=== PATIENT | male | born 1975 ===

== ENCOUNTER 2016-09-06 20:28 | Emergency (ER) | payer MEDICAID ==
[2016-09-06 20:37] VITALS: BP 119/76; PULSE 66; RESP 18; TEMP 98.6; O2SAT 99
--- NOTE | 2016-09-06 21:18 | ED PDOC ---
Lower Extremity Pain/Injury Time Seen by Provider: 09/06/16 20:42 Chief Complaint (Nursing): Lower Extremity Problem/Injury Chief Complaint (Provider): Right Thigh Pain History Per: Family (Aunt) History/Exam Limitations: no limitations Current Symptoms Are (Timing): Still Present Additional Complaint(s): Ced Drew, a 41 year old male, is brought into the ED by his aunt for right thigh pain. The aunt states that the patient has been experiencing this thigh pain for 2-3 week but today it got worse. She reports that he could barely walk. Past Medical History Reviewed: Historical Data, Nursing Documentation, Vital Signs Vital Signs: Last Vital Signs Temp 98.6 F 09/06/16 20:30 Pulse 66 09/06/16 20:30 Resp 18 09/06/16 20:30 BP 119/76 09/06/16 20:30 Pulse Ox 99 09/06/16 20:30 - Medical History PMH: Hyperthyroidism - Surgical History Surgical History: No Surg Hx - Family History Family History: States: Unknown Family Hx - Social History Current smoker - smoking cessation education provided: No Ex-Smoker (has not smoked in the last 12 months): No Alcohol: None Drugs: Denies - Home Medications Home Medications: Ambulatory Orders Medication Instructions Recorded Ibuprofen [Motrin] 600 mg PO Q8 #30 tab 03/29/14 Penicillin VK [Pen-Vee K] 500 mg PO Q6 #28 tab 03/29/14 - Allergies Allergies/Adverse Reactions: Allergies Allergy/AdvReac Type Severity Reaction Status Date / Time No Known Allergies Allergy Verified 03/29/14 14:38 Review of Systems ROS Statement: Except As Marked, All Systems Reviewed And Found Negative Musculoskeletal: Positive for: Other (Right thigh pain) Physical Exam - Reviewed Nursing Documentation Reviewed: Yes Vital Signs Reviewed: Yes - Physical Exam Appears: Positive for: Non-toxic, No Acute Distress Skin: Positive for: Normal Color, Warm, Dry Eye Exam: Positive for: Normal appearance, EOMI, PERRL Neck: Positive for: Normal Respiratory: Negative for: Accessory Muscle Use, Respiratory Distress Extremity: Positive for: Normal ROM (Pain with extension of right knee again resistance ), Tenderness (Right anterior thigh tenderness). Negative for: Pedal Edema, Calf Tenderness, Deformity, Swelling Neurologic/Psych: Positive for: Alert, Oriented - ECG O2 Sat by Pulse Oximetry: 99 (RA) Pulse Ox Interpretation: Normal Medical Decision Making Medical Decision Makin Initial Impression: 39 year old male presenting with right thigh pain Initial Plan: * Tylenol 650 mg PO * RAD right Femur * Reevaluation X-ray without acute fracture or dislocation, no FB Pt reports feeling better after tylenol (taking baby aspirin daily). Scribe Attestation Documented by Dara Mora acting as a scribe for Roro Michelle PA-C. Scribe Attestation All medical record entries made by the Scribe were at my direction and personally dictated by me. I have reviewed the chart and agree that the record accurately reflects my personal performance of the history, physical exam, medical decision making, and the department course for this patient. I have also personally directed, reviewed, and agree with the discharge instructions and disposition. Disposition - Clinical Impression Clinical Impression: Muscle strain - Patient ED Disposition Is Patient to be Admitted: No Counseled Patient/Family Regarding: Diagnosis, Need For Followup - Disposition Referrals: Diane Miles MD [Staff Provider] - Disposition: Routine/Home Disposition Time: 22:16 Condition: GOOD Additional Instructions: Ice, elevation, tylenol for pain. Instructions: Muscle Strain (ED)
--- NOTE | 2016-09-07 14:11 | RAD ---
PROCEDURE: Right femur HISTORY: Right thigh pain, anterior x 1 week COMPARISON: No prior study available comparison. TECHNIQUE: AP and lateral views of the right femur performed. FINDINGS: Current study reveals foreshortened appearance of the right femoral neck possibly due to patient positioning versus anatomic variation. Possibility of a fracture of the femoral neck cannot be excluded. Recommend followup radiographs or CT scan of the right hip if clinically indicated. Remaining osseous structures appear intact. Right femoral head is appropriately located within the right acetabulum. Soft tissues appear grossly unremarkable. IMPRESSION: There is foreshortened appearance of the right femoral neck which could be due to patient positioning versus anatomic variation. Possibility of a fracture of the femoral neck not excluded. Recommend follow-up radiographs or CT scan of the right hip if clinically indicated. Note that this report was placed in PA review folder for followup.
== END 2016-09-06 22:42 | disposition home or self-care (01) ==
LOC: H.ER 20:28
DX: M79.651 Pain in right thigh (principal)

== ENCOUNTER 2016-10-11 17:28 | Emergency (ER) | payer MEDICAID ==
[2016-10-11 17:39] VITALS: BP 99/58; PULSE 78; RESP 18; TEMP 98.1; O2SAT 98
--- NOTE | 2016-10-11 18:15 | ED PDOC ---
Lower Extremity Pain/Injury Time Seen by Provider: 10/11/16 17:50 Chief Complaint (Nursing): Lower Extremity Problem/Injury Chief Complaint (Provider): Hip Pain History Per: Patient History/Exam Limitations: no limitations Current Symptoms Are (Timing): Still Present Additional Complaint(s): Ced Drew, a 41 year old male, presents to the ED for hip pain. As per mother , the patient was seen here a month ago for the same pain and was sent home with instructions to take tylenol for pain. Fermentation Operator states that she got a letter from the hospital saying that she should bring the patient back for a repeat xray. Patient is a poor historian and does not admit to pain. He does admit to provider that he is feeling pain in hi ships bilaterally. PMD: [facility] Past Medical History Reviewed: Historical Data, Nursing Documentation, Vital Signs Vital Signs: Last Vital Signs Temp 98.1 F 10/11/16 17:35 Pulse 78 10/11/16 17:35 Resp 18 10/11/16 17:35 BP 99/58 L 10/11/16 17:35 Pulse Ox 98 10/11/16 17:35 - Medical History PMH: Hyperthyroidism - Family History Family History: States: Unknown Family Hx - Home Medications Home Medications: Ambulatory Orders Medication Instructions Recorded Ibuprofen [Motrin] 600 mg PO Q8 #30 tab 03/29/14 Penicillin VK [Pen-Vee K] 500 mg PO Q6 #28 tab 03/29/14 Bone Meal/Vitamin D2 [Bone Meal 1 tab PO DAILY #30 tab 10/11/16 214 mg-102 mg] - Allergies Allergies/Adverse Reactions: Allergies Allergy/AdvReac Type Severity Reaction Status Date / Time No Known Allergies Allergy Verified 10/11/16 17:35 Review of Systems Musculoskeletal: Positive for: Other (right hip pain) Physical Exam - Reviewed Nursing Documentation Reviewed: Yes Vital Signs Reviewed: Yes - Physical Exam Appears: Positive for: Non-toxic, No Acute Distress Head Exam: Positive for: ATRAUMATIC, NORMAL INSPECTION, NORMOCEPHALIC Skin: Positive for: Normal Color, Warm, Dry Eye Exam: Positive for: Normal appearance, EOMI, PERRL ENT: Positive for: Normal ENT Inspection Neck: Positive for: Normal, Painless ROM, Supple Cardiovascular/Chest: Positive for: Regular Rate, Rhythm, Chest Non Tender. Negative for: Tachycardia Respiratory: Positive for: Normal Breath Sounds. Negative for: Wheezing, Respiratory Distress Gastrointestinal/Abdominal: Positive for: Normal Exam, Bowel Sounds, Soft. Negative for: Tenderness Back: Positive for: Normal Inspection. Negative for: L CVA Tenderness, R CVA Tenderness Extremity: Positive for: Normal ROM (Full ROM to hips but painful with movement , pain greater in right than left.), Other (No difference in length between legs ). Negative for: Deformity, Swelling Neurologic/Psych: Positive for: Alert, Oriented, Gait - ECG O2 Sat by Pulse Oximetry: 98 (RA) Pulse Ox Interpretation: Normal Medical Decision Making Medical Decision Makin Initial Impression: 41 year old male presenting with bilateral hip pain Initial Plan: * RAD right hip * Motrin tab 600mg PO * Reevaluation CT scan shows no Fx. shows osteoarthritis. pt advised to take motrin for pain as needed, perform excersies as needed and f/ u with pmd Scribe Attestation Documented by Dara Mora acting as a scribe for Sonia Packer PA-C. Scribe Attestation All medical record entries made by the Scribe were at my direction and personally dictated by me. I have reviewed the chart and agree that the record accurately reflects my personal performance of the history, physical exam, medical decision making, and the department course Disposition - Clinical Impression Clinical Impression: Hip pain, Arthralgia - Patient ED Disposition Is Patient to be Admitted: No Counseled Patient/Family Regarding: Studies Performed, Diagnosis, Need For Followup, Rx Given - Disposition Disposition: Routine/Home Disposition Time: 19:04 Condition: STABLE Prescriptions: Bone Meal/Vitamin D2 [Bone Meal 214 mg-102 mg] 1 tab PO DAILY #30 tab Instructions: Osteopenia (GEN), Osteoporosis (ED)
--- NOTE | 2016-10-11 18:35 | CT ---
PROCEDURE: CT right hip HISTORY: xray shows ? fx femoral neck COMPARISON: Not available TECHNIQUE: 2.5 mm contiguous axial sections were acquired through the right hip. Sagittal and coronal images were reformatted from the axial scan. FINDINGS: There is no evidence of fracture. There is no lytic or blastic osseous lesion. 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 There are no articular erosions. . There is marginal hypertrophy about the superior aspect of the femoral head. There is no soft tissue abnormality. There is no evidence hemorrhage about the right hip. IMPRESSION: No acute fracture. Superior osteoarthritis.
--- NOTE | 2016-10-11 18:58 | CT ---
PROCEDURE: CT left hip HISTORY: hip injury COMPARISON: Not available TECHNIQUE: Computed tomography of the left hip was performed without intravenous contrast administration. Contiguous 2.5 mm axial sections were acquired through the hip. Sagittal and coronal images were reformatted from the axial scan. FINDINGS: There is no evidence of fracture. There is very mild superior joint space narrowing and subchondral sclerosis consistent with osteoarthritis. There are no articular erosions. There is no soft tissue abnormality. There is no soft tissue hemorrhage seen about the left hip. IMPRESSION: No acute fracture. Mild superior osteoarthritis.
== END 2016-10-11 19:31 | disposition home or self-care (01) ==
LOC: H.ER 17:28
DX: M25.552 Pain in left hip (principal); M25.551 Pain in right hip; E05.90 Thyrotoxicosis, unspecified without thyrotoxic crisis or storm

== ENCOUNTER 2018-02-03 14:45 | Inpatient (IN) | payer MEDICAID ==
[2018-02-03 16:27] LABS: BASO % 0.3 % (0.0-2.0); HEMOGLOBIN 14.9 g/dL (12.0-18.0); LYMPH # 0.5 K/uL (1.0-4.3); LYMPH % 3.2 % (20.0-40.0); MEAN CELL VOLUME 99.6 fl (80.0-94.0); MEAN CORPUSCULAR HEMOGLOBIN 33.2 pg (27.0-31.0); MEAN CORPUSCULAR HGB CONC 33.4 g/dL (33.0-37.0); MEAN PLATELET VOLUME 8.4 fl (7.2-11.7); MONO # 0.7 K/uL (0.0-0.8); MONO % 4.9 % (0.0-10.0); NEUT # 13.1 K/uL (1.8-7.0); NEUT % 91.6 % (50.0-75.0); NRBC % 0.1 % (0.0-0.0); PLATELET COUNT 319 K/uL (130-400); RBC 4.49 Mil/uL (4.40-5.90); RED CELL DISTRIBUTION WIDTH 15.4 % (11.5-14.5); WHITE BLOOD COUNT 14.3 K/uL (4.8-10.8)
--- NOTE | 2018-02-03 16:42 | RAD ---
Date of service: 02/03/2018 PROCEDURE: Right Foot Radiographs. HISTORY: cellulitis r/o FB COMPARISON: None. FINDINGS: BONES: No visible fracture. No evidence of osteomyelitis. JOINTS: Severe hallux valgus deformity. SOFT TISSUES: Extensive soft tissue swelling at the level of the metatarsals. No visualized radiopaque foreign body. OTHER FINDINGS: None. IMPRESSION: Soft tissue swelling without acute articular or osseous abnormality. No visible foreign body.
--- NOTE | 2018-02-03 16:43 | ED PDOC ---
Lower Extremity Pain/Injury Time Seen by Provider: 02/03/18 15:06 Chief Complaint (Nursing): Lower Extremity Problem/Injury Chief Complaint (Provider): Lower Extremity Problem/Injury History Per: Patient History/Exam Limitations: no limitations Onset/Duration Of Symptoms: Days (x3 days) Current Symptoms Are (Timing): Still Present Additional Complaint(s): Ced Drew is 42 year old male with a past medical history of hypothyroidism, who presents to the emergency department with cellulitis and URI symptoms. Patient states he has had x3 days of painful redness and swelling to the top right foot. He denies any trauma or injury. Patient states he is able to ambulate but with mild pain. He reports to have a non productive cough for the last week. Patient denies any difficulty breathing or fever. PMD: [facility] Past Medical History Reviewed: Historical Data, Nursing Documentation, Vital Signs Vital Signs: Last Vital Signs Temp 98.7 F 02/03/18 14:59 Pulse 99 H 02/03/18 14:59 Resp 18 02/03/18 14:59 BP 100/60 02/03/18 14:59 Pulse Ox 100 02/03/18 14:59 - Medical History PMH: Hyperthyroidism - Surgical History Surgical History: No Surg Hx - Family History Family History: States: Unknown Family Hx - Home Medications Home Medications: Ambulatory Orders Medication Instructions Recorded Levothyroxine [Synthroid] 75 mcg PO DAILY 02/03/18 Omeprazole 40 mg PO DAILY 02/03/18 RX: Aspirin [Ecotrin] 81 mg PO DAILY 02/03/18 RX: Ergocalciferol (Vitamin D2) 50,000 unit PO TU 02/03/18 [Vitamin D2] - Allergies Allergies/Adverse Reactions: Allergies Allergy/AdvReac Type Severity Reaction Status Date / Time No Known Allergies Allergy Verified 02/03/18 15:00 Review of Systems ROS Statement: Except As Marked, All Systems Reviewed And Found Negative Constitutional: Negative for: Fever Respiratory: Positive for: Cough Musculoskeletal: Positive for: Foot Pain (swelling to the right foot ) Physical Exam - Reviewed Nursing Documentation Reviewed: Yes Vital Signs Reviewed: Yes - Physical Exam Appears: Positive for: Non-toxic, No Acute Distress Head Exam: Positive for: ATRAUMATIC, NORMOCEPHALIC Skin: Positive for: Normal Color ENT: Positive for: Normal ENT Inspection Cardiovascular/Chest: Positive for: Regular Rate, Rhythm. Negative for: Murmur Respiratory: Positive for: Normal Breath Sounds. Negative for: Respiratory Distress Gastrointestinal/Abdominal: Positive for: Normal Exam, Soft. Negative for: Tenderness Extremity: Positive for: Other (4 cm of erythema, swelling, edema and discoloration on dorsal aspect of right foot; macerated skin in digital spaces between the 3-4 and 4-5) - Laboratory Results Result Diagrams: 02/03/18 16:10 02/03/18 16:10 - ECG O2 Sat by Pulse Oximetry: 100 (RA) Pulse Ox Interpretation: Normal Medical Decision Making Medical Decision Making: Time: 15:42 Plan: --Cmp --Cbc with differential --Chest x-ray --Tylenol 650 mg PO --Foot x-ray --Influenza A B Podiatry consult was called. 16:38 Foot x-ray FINDINGS: BONES: No visible fracture. No evidence of osteomyelitis. JOINTS: Severe hallux valgus deformity. SOFT TISSUES: Extensive soft tissue swelling at the level of the metatarsals. No visualized radiopaque foreign body. OTHER FINDINGS: None. IMPRESSION: Soft tissue swelling without acute articular or osseous abnormality. No visible foreign body. 16:38 Chest x-ray FINDINGS: LUNGS: No active pulmonary disease. PLEURA: No significant pleural effusion identified. No pneumothorax apparent. CARDIOVASCULAR: No aortic atherosclerotic calcification present. No radiographic findings to suggest acute or significant cardiovascular disease. No pulmonary vascular congestion. OSSEOUS STRUCTURES: No significant abnormalities. VISUALIZED UPPER ABDOMEN: Normal. OTHER FINDINGS: None. IMPRESSION: No active disease. No significant interval change compared to the prior examination(s). 19:00 Podiatry requesting admission. Case was discussed with Dr. Thompson who agrees with admission. Patient was given IV ancef ---- Scribe Attestation: Documented by Juno Anguiano, acting as a scribe for Mayra Flores PA-C. Provider Scribe Attestation: All medical record entries made by the Scribe were at my direction and perso hussein dictated by me. I have reviewed the chart and agree that the record accurately reflects my personal performance of the history, physical exam, medical decision making, and the department course for this patient. I have also personally directed, reviewed, and agree with the discharge instructions and disposition. Disposition - Clinical Impression Clinical Impression: Cellulitis - Patient ED Disposition Is Patient to be Admitted: Yes Doctor Will See Patient In The: Hospital Counseled Patient/Family Regarding: Studies Performed, Diagnosis - Disposition Disposition Time: 20:01 Condition: STABLE
[2018-02-03 17:01] LABS: BLOOD UREA NITROGEN 13 mg/dl (9-20); GFR NON-AFRICAN AMERICAN > 60
[2018-02-03 17:02] LABS: CALCIUM 8.8 mg/dL (8.4-10.2)
[2018-02-03 17:03] LABS: ALBUMIN 3.9 g/dL (3.5-5.0); ALT/SGPT 42 U/L (21-72); AST/SGOT 41 U/L (17-59)
--- NOTE | 2018-02-03 17:25 | CP.PCM.CON ---
History of Present Illness - History of Present Illness History of Present Illness: Podiatry consult note for Dr. Isidro 42 year old male with a past medical history of Down Syndrome and Hypothyroidism presents to the emergency department with right lower extremity pain and redness. Patient was brought to the ED by care-taker and patient's aunt. Patient's aunt states she first noted patient was limping on Friday after wlaking her dog, and that she noted the erythema to the right foot developing yesterday, and worsening today. Patient states he has had x 3 days of pain. He denies any trauma or injury. Patient states he is able to ambulate, however has pain. Patient denies any other pedal complaints. Patient denies F/N/V/SOB/CP Patient is a poor historian, as per aunt PMHx: Down syndrome, Hypothyroidism PSHx: unknown Allergies: denied by patient's family member Review of Systems - Review of Systems All systems: reviewed and no additional remarkable complaints except Review of Systems: As per HPI Past Patient History - Past Social History Smoking Status: Unknown If Ever Smoked - CARDIAC Hx Cardiac Disorders: Yes - ENDOCRINE/METABOLIC Hx Hyperthyroidism: Yes - PSYCHIATRIC Hx Substance Use: No - ANESTHESIA Hx Anesthesia: No Meds Allergies/Adverse Reactions: Allergies Allergy/AdvReac Type Severity Reaction Status Date / Time No Known Allergies Allergy Verified 02/03/18 15:00 Physical Exam - Constitutional Appears: Well, Non-toxic, No Acute Distress - Head Exam Head Exam: ATRAUMATIC, NORMOCEPHALIC - Extremities Exam Additional comments: Right Lower Extremity Exam VASC: DP 1/4 likely secondary to edema to the dorsum of the right foot, PT 2/4, CFT less than 3 seconds X 5, non-pitting edema noted to the dorsum of the right foot, TG warm to warm NEURO: grossly intact DERM: erythema and edema noted to the dorsum of the right foot from the level of the ankle joint to the MPJs, increased erythema with centrally located pinpoint lesion noted over the third interspace, positive clinical signs of infection, no open lesions, no malodor, no drainage, no fluctuance, no probe to bone. interdigital maceration noted in interspace 2nd, 3rd, and 4th, no drainage, no open wounds, ORTHO: pain on palpation over the dorsum of the foot, pain with range of motion of the 3rd, 4th and 5th digits, no pain with ankle range of motion, MSK 5/5 - Neurological Exam Neurological exam: Alert, Oriented x3 - Psychiatric Exam Psychiatric exam: Normal Affect, Normal Mood Results - Vital Signs Recent Vital Signs: Last Vital Signs Temp 98.7 F 02/03/18 14:59 Pulse 99 H 02/03/18 14:59 Resp 18 02/03/18 14:59 BP 100/60 02/03/18 14:59 Pulse Ox 100 02/03/18 16:55 - Labs Result Diagrams: 02/03/18 16:10 02/03/18 16:10 Labs: Laboratory Results - last 24 hr 02/03/18 02/03/18 02/03/18 16:10 16:10 16:10 WBC 14.3 H RBC 4.49 Hgb 14.9 Hct 44.7 MCV 99.6 H MCH 33.2 H MCHC 33.4 RDW 15.4 H Plt Count 319 MPV 8.4 Neut % (Auto) 91.6 H Lymph % (Auto) 3.2 L Jack % (Auto) 4.9 Eos % (Auto) 0.0 Baso % (Auto) 0.3 Neut # (Auto) 13.1 H Lymph # (Auto) 0.5 L Jack # (Auto) 0.7 Eos # (Auto) 0.0 Baso # (Auto) 0.0 Sodium 140 Potassium 4.4 Chloride 104 Carbon Dioxide 27 Anion Gap 13 BUN 13 Creatinine 1.1 Est GFR ( Amer) > 60 Est GFR (Non-Af Amer) > 60 Random Glucose 148 H Calcium 8.8 Total Bilirubin 0.4 AST 41 ALT 42 Alkaline Phosphatase 81 Total Protein 7.8 Albumin 3.9 Globulin 3.9 Albumin/Globulin Ratio 1.0 Influenza Typ A,B (EIA) Negative for flu a/b Assessment & Plan - Assessment and Plan (Free Text) Assessment: 42 y/o male patient seen and evaluated for right foot pain with cellulitis Plan: Patient seen and evaluated Plan discussed with attending Dr. Isidro Chart, labs and vitals were reviewed- afebrile with positive leukocytosis at 14.3 Ordered right foot x-rays- extensive soft tissue swelling noted to the dorsum of the foot at the level of the metatarsals, no osseous abnormality, no foreign body visible Patient to be admitted under Dr. Thompson's service for IV Abx No dressing at this time Podiatry will continue to follow patient while in-house - Date & Time Date: 02/03/18 Time: 19:23
[2018-02-03] MEDS ORDERED: ceFAZolin IV 1 gm in Dextrose 1 GM/50 ML BAG IVPB STA (17:32)
[2018-02-03] MEDS ORDERED: ceFAZolin IV 1 gm in Dextrose 1 GM/50 ML BAG IVPB ONE (17:46)
[2018-02-03 17:59] LABS: BANDS 2 % (0-2); LYMPHOCYTE 9 % (20-50); MONOCYTE 4 % (0-10); NEUTROPHIL 85 % (42-75); PLATELET ESTIMATE NORMAL (NORMAL); TOTAL CELLS COUNTED 100
[2018-02-04] MEDS ORDERED: Benzocaine/Menthol (Cepacol) Lozenge PO PRN (00:10)
[2018-02-04] MEDS: Piperacillin/Tazobact 3.375 GM in Sodium Chloride 0.9% 100 ML IVPB SCH ×3 (01:05→16:13)
[2018-02-04] MEDS ORDERED: Alum-Mag Hydrox-Simethicone Susp (30 mL) PO PRN (03:01)
--- NOTE | 2018-02-04 03:06 | PCM.RRT ---
FLOUR WORKER Nurse Assessment - Situation FLOUR WORKER Responder Arrival Time: 03:05 Location: Telemetry Room Number: H408-1 FLOUR WORKER Reason for Call: Chest Pain FLOUR WORKER Called By: RN - IV IV Inserted during FLOUR WORKER?: No - Respiratory Oxygen Delivery Method: Nasal Cannula - Diagnostic Test Ordered EKG: Yes Chest X-Ray: No - Stat Labs Ordered FLOUR WORKER Stat Labs Ordered: TROPONIN CPR started during FLOUR WORKER?: No Plan - Assessment of Findings&Treatment Plan FLOUR WORKER location: Telemetry Room 408- Time: 3:05 am FLOUR WORKER was called by patient's RN due to c/o chest pain. Patient is a 42 year old male with PMHx Down Syndrome and hypothyroidism admitted for right foot cellulitis. Patient reports pain in epigastic and esophageal area, pain is non- radiating, 3/10 with no associated symptoms. Denies any nausea, vomiting, dizziness, focal weakness or dyspnea. Review of patient's medications shows patient takes omeprazole 40 mg po daily. On exam: BP 102/63, HR 102, RR 20, Temp 98.4, pulse ox 97%. Patient is c omfortably lying in bed on NC oxygen, not in acute distress. Cardio: RRR, normal S2, S2, no murmur appreciated. Lungs: clear to auscultation B/L. no wheezing. Neuro: awake and alert. FLOUR WORKER interventions: ECG: Normal sinus rhythm @ [address]/T wave changes. CXR: done on admission and reviewed. Troponin x 2 ordered maalox 30 ml q6 prn Patient's chest pain likely due to gastric pain. Maalox ordered f/u on troponins FLOUR WORKER team: Dr. Castellanos, , pgy-1, Dr. Howard, pgy-2
[2018-02-04] MEDS: Levothyroxine 75 MCG TAB PO SCH (06:01)
[2018-02-04] MEDS ORDERED: Tdap Vaccine 0.5 ml Vial (10-64 yrs) IM ONE (08:04)
[2018-02-04] MEDS ORDERED: Influenza Vaccine (5 YR UP)/PF 60 MCG/0.5 ML SYR IM ONE (09:00)
[2018-02-04] MEDS: Pantoprazole 40 mg EC Tab PO SCH (09:53)
[2018-02-04] MEDS: Enoxaparin 40 mg Syringe SC SCH (09:53)
[2018-02-04] MEDS ORDERED: Lidocaine 1% Inj (20ml) IJ ONE (11:31)
[2018-02-04] MEDS ORDERED: Povidone Iodine Topical 10% Sol ONE (16:27)
--- NOTE | 2018-02-04 17:44 | CP.PCM.HP ---
<Kash Liriano - Last Filed: 02/04/18 17:44> History of Present Illness - History of Present Illness History of Present Illness: 42 y/o male with hx of down syndrome, hypothyroidism presents with complaints of right lower foot pain, redness, and swelling x3 days. Also complains of sore throat. Denies hx of trauma, insect bites, fever/chills. Denies cough, sob, cp. PMD: Gertrude Brown PMHX: Down Syndrome, Hypothyroidism, GERD, Vitamin D deficiency Meds: see med rec [facility] ER Course: --Cmp --Cbc with differential --Chest x-ray --Tylenol 650 mg PO --Foot x-ray --Influenza A B Podiatry consult was called. Foot x-ray FINDINGS: BONES: No visible fracture. No evidence of osteomyelitis. JOINTS: Severe hallux valgus deformity. SOFT TISSUES: Extensive soft tissue swelling at the level of the metatarsals. No visualized radiopaque foreign body. OTHER FINDINGS: None. IMPRESSION: Soft tissue swelling without acute articular or osseous abnormality. No visible foreign body. Present on Admission - Present on Admission Any Indicators Present on Admission: No Past Patient History - Past Medical History & Family History Past Medical History?: Yes - Past Social History Smoking Status: Never Smoked - CARDIAC Hx Cardiac Disorders: Yes - ENDOCRINE/METABOLIC Hx Hyperthyroidism: Yes - MUSCULOSKELETAL/RHEUMATOLOGICAL Hx Falls: Yes - PSYCHIATRIC Hx Substance Use: No - ANESTHESIA Hx Anesthesia: No Meds Allergies/Adverse Reactions: Allergies Allergy/AdvReac Type Severity Reaction Status Date / Time No Known Allergies Allergy Verified 02/03/18 15:00 Physical Exam - Constitutional Appears: No Acute Distress - Head Exam Head Exam: NORMAL INSPECTION - Eye Exam Eye Exam: Normal appearance - ENT Exam ENT Exam: Mucous Membranes Moist, Normal Oropharynx - Respiratory Exam Respiratory Exam: Clear to Auscultation Bilateral. absent: Rales, Wheezes - Cardiovascular Exam Cardiovascular Exam: REGULAR RHYTHM - Extremities Exam Additional comments: Right foot edema, redness, and tenderness of dorsum, erythematous with blurred margins extending to ankle. Motor and sensory in tact. Good distal pulses. No areas of fluctuance or skin breaks - Neurological Exam Neurological exam: Alert - Psychiatric Exam Psychiatric exam: Normal Affect - Skin Skin Exam: Normal Color Results - Vital Signs Recent Vital Signs: Last Vital Signs Temp 99.0 F 1205/18 15:49 Pulse 100 H 02/04/18 15:49 Resp 20 02/04/18 15:49 BP 104/68 02/04/18 15:49 Pulse Ox 98 02/04/18 15:49 - Labs Result Diagrams: 02/03/18 16:10 02/03/18 16:10 Labs: Laboratory Results - last 24 hr 02/03/18 02/04/18 02/04/18 16:10 03:18 08:30 Neutrophils % (Manual) 85 H Band Neutrophils % 2 Lymphocytes % (Manual) 9 L Monocytes % (Manual) 4 Platelet Estimate Normal Macrocytosis (manual) Slight ESR 68 H Phosphorus Magnesium Troponin I < 0.0120 C-Reactive Protein 02/04/18 08:30 Neutrophils % (Manual) Band Neutrophils % Lymphocytes % (Manual) Monocytes % (Manual) Platelet Estimate Macrocytosis (manual) ESR Phosphorus 3.2 Magnesium 2.2 Troponin I C-Reactive Protein 187.10 H Assessment & Plan - Assessment and Plan (Free Text) Assessment: 42 y/o male with hx of down syndrome, hypothyroidism presents with complaints of right lower foot pain, redness, and swelling x3 days. Also complains of sore throat. Cellulites -Podiatry consulted- Lower Ext Joint MRI ordered - S/P Ancef in ED -C/W Vancomysin and Zosyn -Tetanuse vaccine -Cepacol lozenge for sore throat -C/W home meds as ordered Discusssed case with Dr. Thompson <Hardy Thompson - Last Filed: 02/04/18 18:45> Results - Vital Signs Recent Vital Signs: Last Vital Signs Temp 99.0 F 02/04/18 15:49 Pulse 100 H 02/04/18 15:49 Resp 20 02/04/18 15:49 BP 104/68 02/04/18 15:49 Pulse Ox 98 02/04/18 15:49 - Labs Result Diagrams: 02/03/18 16:10 02/03/18 16:10 Labs: Laboratory Results - last 24 hr 02/04/18 02/04/18 02/04/18 03:18 08:30 08:30 ESR 68 H Phosphorus 3.2 Magnesium 2.2 Troponin I < 0.0120 C-Reactive Protein 187.10 H Assessment & Plan - Assessment and Plan (Free Text) Assessment: Patient was personally seen and examined by me in rounds with residents. Available labs and diagnostic data reviewed. Case, Patient's condition and management plan discussed with residents in rounds. Agree with resident's progress note. Plan: As ordered.
[2018-02-05] MEDS: Piperacillin/Tazobact 3.375 GM in Sodium Chloride 0.9% 100 ML IVPB SCH ×3 (01:06→18:09)
[2018-02-05] MEDS: Levothyroxine 75 MCG TAB PO SCH (06:01)
[2018-02-05 06:08] LABS: HEMOGLOBIN 13.8 g/dL (12.0-18.0); MEAN CELL VOLUME 98.9 fl (80.0-94.0); MEAN CORPUSCULAR HEMOGLOBIN 33.3 pg (27.0-31.0); MEAN CORPUSCULAR HGB CONC 33.6 g/dL (33.0-37.0); RBC 4.14 Mil/uL (4.40-5.90); RED CELL DISTRIBUTION WIDTH 15.4 % (11.5-14.5); WHITE BLOOD COUNT 15.4 K/uL (4.8-10.8)
[2018-02-05 06:29] LABS: ALB/GLOB RATIO 0.8 (1.0-2.1); ALBUMIN 3.2 g/dL (3.5-5.0); ALT/SGPT 55 U/L (21-72); AST/SGOT 40 U/L (17-59); BLOOD UREA NITROGEN 12 mg/dl (9-20); CALCIUM 8.5 mg/dL (8.4-10.2); GFR NON-AFRICAN AMERICAN > 60
[2018-02-05] MEDS: Pantoprazole 40 mg EC Tab PO SCH (09:47)
[2018-02-05] MEDS: Enoxaparin 40 mg Syringe SC SCH ×2 (09:47→10:26)
[2018-02-05] MEDS: Lactobacillus Acidophilus 500 MU Cap PO SCH ×3 (09:50→18:09)
--- NOTE | 2018-02-05 10:59 | CP.PCM.PN ---
Subjective - Date & Time of Evaluation Date of Evaluation: 02/04/18 Time of Evaluation: 16:00 - Subjective Subjective: Podiatry progress not for Dr. Isidro 42 y/o male patient was seen and evaluated at bedside for right foot cellulitis. Patient was admitted the night before on 02/03/18 for IV Abx. Patient's father was present at bedside. patient complains of pain to the area, however denied any other complaints. Patient was in no acute distress at time of evaluation. Objective - Vital Signs/Intake and Output Vital Signs (last 24 hours): Temp Pulse Resp BP Pulse Ox 98.2 F 93 H 20 120/75 95 02/05/18 08:31 02/05/18 08:31 02/05/18 08:31 02/05/18 08:31 02/05/18 08:31 - Medications Medications: Current Medications Acetaminophen (Tylenol 325mg Tab) 650 mg PO Q6 PRN PRN Reason: temp 101 Acetaminophen (Tylenol 325mg Tab) 650 mg PO Q6 PRN PRN Reason: Pain, Mild (1-3) Last Admin: 02/04/18 22:50 Dose: 650 mg Al Hydrox/Mg Hydrox/Simethicone (Maalox Plus 30 Ml) 30 ml PO Q6 PRN PRN Reason: Indigestion / Heartburn Last Admin: 02/04/18 03:17 Dose: 30 ml Aspirin (Ecotrin) 81 mg PO DAILY [facility] Last Admin: 02/05/18 09:47 Dose: 81 mg Benzocaine/Menthol (Cepacol Sore Throat) 1 mariangel PO Q6 PRN PRN Reason: Sore Throat Last Admin: 02/04/18 00:58 Dose: 1 mariangel Enoxaparin Sodium (Lovenox) 40 mg SC DAILY [facility]; Protocol Last Admin: 02/05/18 10:26 Dose: Not Given Ergocalciferol (Drisdol 50,000 Intl Units Cap) 1 cap PO TU [facility] Piperacillin Sod/Tazobactam (Sod 3.375 gm/ Sodium Chloride) 100 mls @ 100 mls/hr IVPB Q8 [facility]; Protocol Last Admin: 02/05/18 09:48 Dose: 100 mls/hr Vancomycin HCl 1 gm/ Sodium (Chloride) 250 mls @ 166.667 mls/hr IVPB Q12 [facility]; Protocol Last Admin: 02/04/18 20:57 Dose: 166.667 mls/hr Lactobacillus Acidophilus (Bacid Acidophilus) 1 cap PO BID [facility] Last Admin: 02/05/18 09:52 Dose: 1 cap Levothyroxine Sodium (Synthroid) 75 mcg PO DAILY@0630 [facility] Last Admin: 02/05/18 06:01 Dose: 75 mcg Pantoprazole Sodium (Protonix Ec Tab) 40 mg PO DAILY [facility] Last Admin: 02/05/18 09:47 Dose: 40 mg - Labs Labs: 02/05/18 05:40 02/05/18 05:40 - Constitutional Appears: Well, Non-toxic, No Acute Distress - Head Exam Head Exam: ATRAUMATIC, NORMOCEPHALIC - Extremities Exam Additional comments: Right Lower Extremity Exam VASC: DP 2/4 likely secondary to edema to the dorsum of the right foot, PT 2/4, CFT less than 3 seconds X 5, worsening non-pitting edema noted to the dorsum of the right foot, TG warm to warm NEURO: grossly intact DERM: erythema and edema noted to the dorsum of the right foot from the level of the ankle joint to the MPJs, increased erythema with centrally located blister noted over the third interspace, positive clinical signs of infection, no open lesions, no malodor, no drainage, mild central fluctuance noted, no probe to bone, interdigital maceration noted in interspace 2nd, 3rd, and 4th bilaterally, no drainage, no open wounds ORTHO: pain on palpation over the dorsum of the foot, pain with range of motion of the 3rd, 4th and 5th digits, no pain with ankle range of motion, MSK 5/5 - Neurological Exam Neurological Exam: Alert, Awake - Psychiatric Exam Psychiatric exam: Normal Affect, Normal Mood Assessment and Plan - Assessment and Plan (Free Text) Assessment: 42 y/o male seen and evaluated for R foot cellulitis Plan: Patient seen and evaluated at bedside Plan discussed with attending Dr. Isidro Chart, labs and vitals were reviewed- afebrile, positive leukocytosis, WBC 14.3 on arrival to ED Continue IV Abx- Vancomycin 1 gm Q12 was added to patient's regimen Right foot x-rays- extensive soft tissue swelling noted to the dorsum of the foot at the level of the metatarsals, no osseous abnormality, no foreign body visible MRI was ordered- patient unable to tolerate the MRI machine Patient and father explained that patient requires a bedside incision and drainage to r/o abscess, patient and father agreeable to procedure Consent was obtained after careful explanation of risks and benefits, witnessed by nurse, and signed by father 10 cc of 1% Lidocaine plain was given for proximal to the cellulitis area on the dorsum of the right foot Incision was made over the third interspace at the site of the blister formation with a #15 blade 1 cc of purulent drainage was expressed after multiple efforts Incision site was flushed with betadine and normal sterile saline Betadine wet 2 dry dressing was applied to the foot Patient tolerated the procedure well Patient and family was explained that patient requires an MRI to r/o deeper abscess, will try second time, and also explained patient will need to go to [place] if this does not resolve Patient and family in agreement Podiatry will continue to follow patient while in house
--- NOTE | 2018-02-05 11:25 | CP.PCM.PN ---
Subjective - Date & Time of Evaluation Date of Evaluation: 02/05/18 Time of Evaluation: 11:23 - Subjective Subjective: Podiatry progress not for Dr. Isidro 42 y/o male patient was seen and evaluated at bedside for right foot cellulitis. Patient's father was present at bedside. Patient complains of pain to the area, however states it has significantly improved. Patient was in no acute distress at time of evaluation. Objective - Vital Signs/Intake and Output Vital Signs (last 24 hours): Temp Pulse Resp BP Pulse Ox 98.2 F 93 H 20 120/75 95 02/05/18 08:31 02/05/18 08:31 02/05/18 08:31 02/05/18 08:31 02/05/18 08:31 - Medications Medications: Current Medications Acetaminophen (Tylenol 325mg Tab) 650 mg PO Q6 PRN PRN Reason: temp 101 Acetaminophen (Tylenol 325mg Tab) 650 mg PO Q6 PRN PRN Reason: Pain, Mild (1-3) Last Admin: 02/04/18 22:50 Dose: 650 mg Al Hydrox/Mg Hydrox/Simethicone (Maalox Plus 30 Ml) 30 ml PO Q6 PRN PRN Reason: Indigestion / Heartburn Last Admin: 02/04/18 03:17 Dose: 30 ml Aspirin (Ecotrin) 81 mg PO DAILY [facility] Last Admin: 02/05/18 09:47 Dose: 81 mg Benzocaine/Menthol (Cepacol Sore Throat) 1 mariangel PO Q6 PRN PRN Reason: Sore Throat Last Admin: 02/04/18 00:58 Dose: 1 mariangel Enoxaparin Sodium (Lovenox) 40 mg SC DAILY [facility]; Protocol Last Admin: 02/05/18 10:26 Dose: Not Given Ergocalciferol (Drisdol 50,000 Intl Units Cap) 1 cap PO TU [facility] Piperacillin Sod/Tazobactam (Sod 3.375 gm/ Sodium Chloride) 100 mls @ 100 mls/hr IVPB Q8 [facility]; Protocol Last Admin: 02/05/18 09:48 Dose: 100 mls/hr Vancomycin HCl 1 gm/ Sodium (Chloride) 250 mls @ 166.667 mls/hr IVPB Q12 [facility]; Protocol Last Admin: 02/04/18 20:57 Dose: 166.667 mls/hr Lactobacillus Acidophilus (Bacid Acidophilus) 1 cap PO BID [facility] Last Admin: 02/05/18 09:52 Dose: 1 cap Levothyroxine Sodium (Synthroid) 75 mcg PO DAILY@0630 [facility] Last Admin: 02/05/18 06:01 Dose: 75 mcg Pantoprazole Sodium (Protonix Ec Tab) 40 mg PO DAILY [facility] Last Admin: 02/05/18 09:47 Dose: 40 mg - Labs Labs: 02/05/18 05:40 02/05/18 05:40 - Constitutional Appears: Well, Non-toxic, No Acute Distress - Head Exam Head Exam: ATRAUMATIC, NORMOCEPHALIC - Extremities Exam Additional comments: Right Lower Extremity Exam VASC: DP 2/4 likely secondary to edema to the dorsum of the right foot, PT 2/4, CFT less than 3 seconds X 5, significantly improving non-pitting edema noted to the dorsum of the right foot, TG warm to warm NEURO: grossly intact DERM: improving erythema and edema noted to the dorsum of the right foot from the level of the ankle joint to the MPJs, improving erythema with centrally located incision noted over the third interspace with some maceration, positive clinical signs of infection, no open lesions, no malodor, no drainage, no probe to bone, interdigital maceration noted in interspace 2nd, 3rd, and 4th bilaterally, no drainage, no open wounds ORTHO: pain on palpation over the dorsum of the foot, pain with range of motion of the 3rd, 4th and 5th digits, no pain with ankle range of motion, MSK 5/5 - Neurological Exam Neurological Exam: Alert, Awake - Psychiatric Exam Psychiatric exam: Normal Affect, Normal Mood Assessment and Plan - Assessment and Plan (Free Text) Assessment: 42 y/o male seen and evaluated for R foot cellulitis Plan: Patient seen and evaluated at bedside Plan discussed with attending Dr. Isidro Chart, labs and vitals were reviewed- afebrile at this time, positive leukocytosis, WBC 15.4 Continue IV Abx Right foot x-rays- extensive soft tissue swelling noted to the dorsum of the foot at the level of the metatarsals, no osseous abnormality, no foreign body visible MRI was ordered- will attempt today Patient and family explained patient will need to go to [place] if this does not resolve Stable dressing change with betadine, DSD Patient and family in agreement Podiatry will continue to follow patient while in house
--- NOTE | 2018-02-05 16:23 | CP.PCM.PN ---
<Kash Liriano - Last Filed: 02/05/18 16:21> Subjective - Date & Time of Evaluation Date of Evaluation: 02/05/18 Time of Evaluation: 08:00 - Subjective Subjective: Pt seen and exained this morning with Dr. Thompson. No complaints. Foot wrapped in Dominguez. Plan for MRI today. Objective - Vital Signs/Intake and Output Vital Signs (last 24 hours): Temp Pulse Resp BP Pulse Ox 98.2 F 93 H 20 120/75 95 02/05/18 08:31 02/05/18 08:31 02/05/18 08:31 02/05/18 08:31 02/05/18 08:31 - Medications Medications: Current Medications Acetaminophen (Tylenol 325mg Tab) 650 mg PO Q6 PRN PRN Reason: temp 101 Acetaminophen (Tylenol 325mg Tab) 650 mg PO Q6 PRN PRN Reason: Pain, Mild (1-3) Last Admin: 02/04/18 22:50 Dose: 650 mg Al Hydrox/Mg Hydrox/Simethicone (Maalox Plus 30 Ml) 30 ml PO Q6 PRN PRN Reason: Indigestion / Heartburn Last Admin: 02/04/18 03:17 Dose: 30 ml Aspirin (Ecotrin) 81 mg PO DAILY [facility] Last Admin: 02/05/18 09:47 Dose: 81 mg Benzocaine/Menthol (Cepacol Sore Throat) 1 mariangel PO Q6 PRN PRN Reason: Sore Throat Last Admin: 02/04/18 00:58 Dose: 1 mariangel Enoxaparin Sodium (Lovenox) 40 mg SC DAILY [facility]; Protocol Last Admin: 02/05/18 10:26 Dose: Not Given Ergocalciferol (Drisdol 50,000 Intl Units Cap) 1 cap PO TU [facility] Piperacillin Sod/Tazobactam (Sod 3.375 gm/ Sodium Chloride) 100 mls @ 100 mls/hr IVPB Q8 [facility]; Protocol Last Admin: 02/05/18 09:48 Dose: 100 mls/hr Vancomycin HCl 1 gm/ Sodium (Chloride) 250 mls @ 166.667 mls/hr IVPB Q12 [facility]; Protocol Last Admin: 02/05/18 11:24 Dose: 166.667 mls/hr Lactobacillus Acidophilus (Bacid Acidophilus) 1 cap PO BID [facility] Last Admin: 12/06/18 09:52 Dose: 1 cap Levothyroxine Sodium (Synthroid) 75 mcg PO DAILY@0630 [facility] Last Admin: 02/05/18 06:01 Dose: 75 mcg Pantoprazole Sodium (Protonix Ec Tab) 40 mg PO DAILY [facility] Last Admin: 02/05/18 09:47 Dose: 40 mg - Labs Labs: 02/05/18 05:40 02/05/18 05:40 - Constitutional Appears: Non-toxic, No Acute Distress - Eye Exam Eye Exam: Normal appearance - ENT Exam ENT Exam: Mucous Membranes Moist - Respiratory Exam Respiratory Exam: Clear to Ausculation Bilateral - Cardiovascular Exam Cardiovascular Exam: REGULAR RHYTHM - GI/Abdominal Exam GI & Abdominal Exam: Normal Bowel Sounds - Extremities Exam Extremities Exam: Normal Capillary Refill. absent: Calf Tenderness, Pedal Edema Additional comments: Right foot wrapped in dominguez bandage. Good capillary refill in toes. Motor and s ensory in tact, pink color. - Neurological Exam Neurological Exam: Alert, Awake - Psychiatric Exam Psychiatric exam: Normal Affect - Skin Skin Exam: Normal Color Assessment and Plan - Assessment and Plan (Free Text) Assessment: 42 y/o male with hx of down syndrome, hypothyroidism presents with complaints of right lower foot pain, redness, and swelling x3 days. Also complains of sore throat. Cellulites -Podiatry consulted- Lower Ext Joint MRI ordered - S/P Ancef in ED -C/W Vancomysin and Zosyn -Tetanuse vaccine -Cepacol lozenge for sore throat -C/W home meds as ordered Discusssed case with Dr. Thompson <Hardy Thompson - Last Filed: 02/08/18 17:37> Objective - Vital Signs/Intake and Output Vital Signs (last 24 hours): Temp Pulse Resp BP Pulse Ox 97.6 F 69 18 100/69 97 02/08/18 16:28 02/08/18 16:28 02/08/18 16:28 02/08/18 16:28 02/08/18 16:28 - Medications Medications: Current Medications Acetaminophen (Tylenol 325mg Tab) 650 mg PO Q6 PRN PRN Reason: temp 101 Last Admin: 02/08/18 09:03 Dose: 650 mg Acetaminophen (Tylenol 325mg Tab) 650 mg PO Q6 PRN PRN Reason: Pain, Mild (1-3) Last Admin: 02/04/18 22:50 Dose: 650 mg Al Hydrox/Mg Hydrox/Simethicone (Maalox Plus 30 Ml) 30 ml PO Q6 PRN PRN Reason: Indigestion / Heartburn Last Admin: 02/04/18 03:17 Dose: 30 ml Aspirin (Ecotrin) 81 mg PO DAILY [facility] Last Admin: 02/08/18 08:56 Dose: 81 mg Bacitracin (Bacitracin Oint) 1 applic TOP DAILY [facility] Last Admin: 02/08/18 16:35 Dose: Not Given Benzocaine/Menthol (Cepacol Sore Throat) 1 mariangel PO Q6 PRN PRN Reason: Sore Throat Last Admin: 02/04/18 00:58 Dose: 1 mariangel Enoxaparin Sodium (Lovenox) 40 mg SC DAILY [facility]; Protocol Last Admin: 02/08/18 09:07 Dose: Not Given Ergocalciferol (Drisdol 50,000 Intl Units Cap) 1 cap PO TU [facility] Cefazolin Sodium 2 gm/ Sodium (Chloride) 100 mls @ 100 mls/hr IVPB Q8 [facility]; Protocol Last Admin: 02/08/18 16:29 Dose: 100 mls/hr Lactobacillus Acidophilus (Bacid Acidophilus) 1 cap PO BID [facility] Last Admin: 02/08/18 16:29 Dose: 1 cap Levothyroxine Sodium (Synthroid) 75 mcg PO DAILY@0630 [facility] Last Admin: 02/08/18 06:37 Dose: 75 mcg Pantoprazole Sodium (Protonix Ec Tab) 40 mg PO DAILY [facility] Last Admin: 02/08/18 08:56 Dose: 40 mg - Labs Labs: 02/08/18 06:00 02/08/18 06:00 Assessment and Plan - Assessment and Plan (Free Text) Assessment: Patient was personally seen and examined by me in rounds with residents. Available labs and diagnostic data reviewed. Case, Patient's condition and management plan discussed with residents in rounds. Agree with resident's progress note. Plan: As ordered.
--- NOTE | 2018-02-05 17:58 | MRI ---
Date of service: 02/05/2018 PROCEDURE: MRI Right Foot HISTORY: Pain. COMPARISON: Right foot radiographs 02/03/2018. TECHNIQUE: Multiecho multiplanar sequences were performed through the right foot without the use of intravenous contrast. FINDINGS: Examination captured at the site of patient's assessed did abscess in the forefoot/midfoot distribution and excludes the hindfoot anatomy. BONES: No fracture. Normal marrow signal. There is a severe hallux valgus deformity identified with concomitant degenerative cortical sclerosis at the interphalangeal joints of the 1st metatarsophalangeal joint, moderate at the interphalangeal joint of the great toe. No erosive bony changes or bony destruction appreciable. MUSCLES: Normal. SOFT TISSUES: Extensive edema is appreciated in the dorsal forefoot and midfoot anatomy diffusely and is only mild at the plantar foot subcutaneous fat. No cyst definite fluid collection is appreciable or definable abscess though phlegmon is not excluded. Clinically correlate further. A small dermal laceration is not excluded at the forefoot overlying the plane of the 4th metacarpal carpal joint. LISFRANC LIGAMENT: Intact without definite tear. PLANTAR PLATE: Visualized plantar plate is intact without definite tear. EXTENSOR TENDONS: The visualized extensor tendons are intact without tear FLEXOR TENDONS: No definite flexor tendon tear appreciable. OTHER FINDINGS: None. IMPRESSION: Extensive dorsal soft tissue edema is appreciated which is minimal at the plantar soft tissues. Tiny laceration is not excluded at the dorsal forefoot dermis laterally. Clinically correlate. A definitive abscess is not evident. Phlegmon at the dorsal forefoot soft tissues is not excluded in this noncontrast examination. The abscess remains clinically suspected follow-up ultrasound at the site of abscess is advised.
[2018-02-06] MEDS: Piperacillin/Tazobact 3.375 GM in Sodium Chloride 0.9% 100 ML IVPB SCH ×3 (00:20→16:03)
[2018-02-06 06:19] LABS: HEMOGLOBIN 13.6 g/dL (12.0-18.0); MEAN CELL VOLUME 98.9 fl (80.0-94.0); MEAN CORPUSCULAR HGB CONC 33.4 g/dL (33.0-37.0); RBC 4.12 Mil/uL (4.40-5.90); RED CELL DISTRIBUTION WIDTH 15.1 % (11.5-14.5); WHITE BLOOD COUNT 12.6 K/uL (4.8-10.8)
[2018-02-06] MEDS: Levothyroxine 75 MCG TAB PO SCH (06:23)
--- NOTE | 2018-02-06 07:15 | CP.PCM.PN ---
Subjective - Date & Time of Evaluation Date of Evaluation: 02/06/18 Time of Evaluation: 07:11 - Subjective Subjective: Podiatry progress not for Dr. Isidro 42 y/o male patient was seen and evaluated at bedside for right foot cellulitis. Patient dressing was removed overnight. Patient complains of pain to the area, however states it has significantly improved. Patient was in no acute distress at time of evaluation. Patient family is aware patient to go to the OR today around 4:00 PM Objective - Vital Signs/Intake and Output Vital Signs (last 24 hours): Temp Pulse Resp BP Pulse Ox 99.2 F 96 H 20 103/58 L 100 02/06/18 00:14 02/06/18 00:14 02/06/18 00:14 02/06/18 00:14 02/06/18 00:14 - Medications Medications: Current Medications Acetaminophen (Tylenol 325mg Tab) 650 mg PO Q6 PRN PRN Reason: temp 101 Acetaminophen (Tylenol 325mg Tab) 650 mg PO Q6 PRN PRN Reason: Pain, Mild (1-3) Last Admin: 02/04/18 22:50 Dose: 650 mg Al Hydrox/Mg Hydrox/Simethicone (Maalox Plus 30 Ml) 30 ml PO Q6 PRN PRN Reason: Indigestion / Heartburn Last Admin: 02/04/18 03:17 Dose: 30 ml Aspirin (Ecotrin) 81 mg PO DAILY [facility] Last Admin: 02/05/18 09:47 Dose: 81 mg Benzocaine/Menthol (Cepacol Sore Throat) 1 mariangel PO Q6 PRN PRN Reason: Sore Throat Last Admin: 02/04/18 00:58 Dose: 1 mariangel Enoxaparin Sodium (Lovenox) 40 mg SC DAILY [facility]; Protocol Last Admin: 02/05/18 10:26 Dose: Not Given Ergocalciferol (Drisdol 50,000 Intl Units Cap) 1 cap PO TU [facility] Piperacillin Sod/Tazobactam (Sod 3.375 gm/ Sodium Chloride) 100 mls @ 100 mls/hr IVPB Q8 [facility]; Protocol Last Admin: 02/06/18 00:20 Dose: 100 mls/hr Vancomycin HCl 1 gm/ Sodium (Chloride) 250 mls @ 166.667 mls/hr IVPB Q12 [facility]; Protocol Last Admin: 02/05/18 21:32 Dose: 166.667 mls/hr Lactobacillus Acidophilus (Bacid Acidophilus) 1 cap PO BID [facility] Last Admin: 02/05/18 18:09 Dose: 1 cap Levothyroxine Sodium (Synthroid) 75 mcg PO DAILY@0630 [facility] Last Admin: 02/06/18 06:23 Dose: 75 mcg Pantoprazole Sodium (Protonix Ec Tab) 40 mg PO DAILY [facility] Last Admin: 02/05/18 09:47 Dose: 40 mg - Labs Labs: 02/06/18 05:45 02/05/18 05:40 - Constitutional Appears: Well, Non-toxic, No Acute Distress - Head Exam Head Exam: ATRAUMATIC, NORMOCEPHALIC - Extremities Exam Additional comments: Right Lower Extremity Exam VASC: DP 2/4 likely secondary to edema to the dorsum of the right foot, PT 2/4, CFT less than 3 seconds X 5, significantly improving non-pitting edema noted to the dorsum of the right foot, TG warm to warm NEURO: grossly intact DERM: improving erythema and edema noted to the dorsum of the right foot from the level of the ankle joint to the MPJs, improving erythema with centrally located incision noted over the third interspace with some maceration, positive clinical signs of infection, no open lesions, no malodor, no drainage, no probe to bone, interdigital maceration noted in interspace 2nd, 3rd, and 4th bilaterally, no drainage, no open wounds ORTHO: pain on palpation over the dorsum of the foot, pain with range of motion of the 3rd, 4th and 5th digits, no pain with ankle range of motion, MSK 5/5 - Neurological Exam Neurological Exam: Alert, Awake, Oriented x3 - Psychiatric Exam Psychiatric exam: Normal Affect, Normal Mood Assessment and Plan - Assessment and Plan (Free Text) Assessment: 42 y/o male seen and evaluated for R foot cellulitis Plan: Patient seen and evaluated at bedside Plan discussed with attending Dr. Isidro Chart, labs and vitals were reviewed- afebrile at this time, positive leukocytosis, WBC 12.6 ESR ESR 92, CRP 240.90 (trending up) Continue IV Abx Right foot x-rays- extensive soft tissue swelling noted to the dorsum of the foot at the level of the metatarsals, no osseous abnormality, no foreign body visible MRI Right Foot- extensive dorsal soft tissue edema, a definitive abscess not evident, US is advised to r/o abscess Ordered US to r/o abscess Patient tentatively scheduled for OR 4:00 PM today NPO placed, Lovenox on hold Stable dressing change with betadine, DSD Patient and family in agreement Podiatry will continue to follow patient while in house
[2018-02-06 07:19] LABS: ALB/GLOB RATIO 0.8 (1.0-2.1); ALBUMIN 3.2 g/dL (3.5-5.0); ALT/SGPT 50 U/L (21-72); AST/SGOT 50 U/L (17-59); BLOOD UREA NITROGEN 13 mg/dl (9-20); CALCIUM 8.5 mg/dL (8.4-10.2); GFR NON-AFRICAN AMERICAN > 60
[2018-02-06] MEDS: Lactobacillus Acidophilus 500 MU Cap PO SCH ×2 (08:28→16:04)
[2018-02-06] MEDS: Pantoprazole 40 mg EC Tab PO SCH (08:28)
[2018-02-06] MEDS ORDERED: Lidocaine 1% Inj (20ml) IJ ONE (14:01)
--- NOTE | 2018-02-06 14:07 | CP.PCM.CON ---
History of Present Illness - History of Present Illness History of Present Illness: 42 year old male with a past medical history of Down Syndrome and Hypothyroidism presented to the emergency department with right lower extremity pain and redness. Found to have abscess right foot dorssal aspect freferred for ID e thierno for antibiotic management Patient is a poor historian, PMHx: Down syndrome, Hypothyroidism PSHx: unknown Allergies: denied by patient's family member Review of Systems - Review of Systems All systems: reviewed and no additional remarkable complaints except - Constitutional Constitutional: As Per HPI - EENT Eyes: absent: As Per HPI, Blind Spots, Blurred Vision, Change in Vision, Decreased Night Vision, Diplopia, Discharge, Dry Eye, Exophthalmos, Floaters, Irritation, Itchy Eyes, Loss of Peripheral Vision, Pain, Photophobia, Requires Corrective Lenses, Sees Flashes, Spots in Vision, Tunnel Vision, Other Visual Disturbances, Loss of Vision, Other Ears: absent: As Per HPI, Decreased Hearing, Ear Discharge, Ear Pain, Tinnitus, Abnormal Hearing, Disequilibrium, Dizziness, Other Nose/Mouth/Throat: absent: As Per HPI, Epistaxis, Nasal Congestion, Nasal Discharge, Nasal Obstruction, Nasal Trauma, Nose Pain, Post Nasal Drip, Sinus Pain, Sinus Pressure, Bleeding Gums, Change in Voice, Dental Pain, Dry Mouth, Dysphagia, Halitosis, Hoarsness, Lip Swelling, Mouth Lesions, Mouth Pain, Odynophagia, Sore Throat, Throat Swelling, Tongue Swelling, Facial Pain, Neck Pain, Neck Mass, Other - Cardiovascular Cardiovascular: absent: As Per HPI, Acrocyanosis, Chest Pain, Chest Pain at Rest, Chest Pain with Activity, Claudication, Diaphoresis, Dyspnea, Dyspnea on Exertion, Edema, Irregular Heart Rhythm, Pain Radiating to Arm/Neck/Jaw, Leg Edema, Leg Ulcers, Lightheadedness, Orthopnea, Palpitations, Paroxysmal Nocturnal Dyspnea, Pedal Edema, Radiating Pain, Rapid Heart Rate, Slow Heart Rate, Syncope, Other - Respiratory Respiratory: absent: As Per HPI, Cough, Dyspnea, Hemoptysis, Dyspnea on Exertion, Wheezing, Snoring, Stridor, Pain on Inspiration, Chest Congestion, Excessive Mucous Production, Change in Mucous Color, Pain with Coughing, Other - Gastrointestinal Gastrointestinal: absent: As Per HPI, Abdominal Pain, Belching, Bloating, Change in Bowel Habits, Change in Stool Character, Coffee Ground Emesis, Constipation, Cramping, Diarrhea, Dyspepsia, Dysphagia, Early Satiety, Excessive Flatus, Fecal Incontinence, Heartburn, Hematemesis, Hematochezia, Loose Stools, Melena, Nausea, Odynophagia, Temesmus, Vomiting, Other - Genitourinary Genitourinary: absent: As Per HPI, Change in Urinary Stream, Difficulty Urinating, Dysuria, Flank Pain, Hematuria, Pyuria, Nocturia, Urinary Incontinence, Urinary Frequency, Urinary Hesitance, Urinary Urgency, Voiding Freq/Small Amts, Freq UTI, Hx Renal/Bladder Calculi, Hx /Renal Surgery, Tariq dder Distension, Other - Musculoskeletal Musculoskeletal: As Per HPI - Integumentary Integumentary: As Per HPI - Neurological Neurological: As Per HPI - Psychiatric Psychiatric: absent: As Per HPI, Abnormal Sleep Pattern, Anhedonia, Anxiety, Au ditory Hallucinations, Behavioral Changes, Change in Appetite, Change in Libido, Confusion, Depression, Difficulty Concentrating, Hallucinations, Homicidal Ideation, Hopelessness, Irritability, Memory Loss, Mood Swings, Panic Attacks, Paranoia, Suicidal Ideation, Visual Hallucinations, Tactile Hallucinations, Other - Endocrine Endocrine: absent: As Per HPI, Change in Body Appearance, Change in Libido, Cold Intolorance, Deepening of Voice, Excessive Sweating, Fatigue, Flushing, Heat Intolorance, Increase in Ring/Shoe/Hat Size, Palpitations, Polydipsia, Blair yphagia, Polyuria, Other Past Patient History - Past Medical History & Family History Past Medical History?: Yes - Past Social History Smoking Status: Never Smoked - CARDIAC Hx Cardiac Disorders: Yes - ENDOCRINE/METABOLIC Hx Hyperthyroidism: Yes - MUSCULOSKELETAL/RHEUMATOLOGICAL Hx Falls: Yes - PSYCHIATRIC Hx Substance Use: No - ANESTHESIA Hx Anesthesia: No Meds Allergies/Adverse Reactions: Allergies Allergy/AdvReac Type Severity Reaction Status Date / Time No Known Allergies Allergy Verified 02/03/18 15:00 - Medications Medications: Current Medications Acetaminophen (Tylenol 325mg Tab) 650 mg PO Q6 PRN PRN Reason: temp 101 Acetaminophen (Tylenol 325mg Tab) 650 mg PO Q6 PRN PRN Reason: Pain, Mild (1-3) Last Admin: 02/04/18 22:50 Dose: 650 mg Al Hydrox/Mg Hydrox/Simethicone (Maalox Plus 30 Ml) 30 ml PO Q6 PRN PRN Reason: Indigestion / Heartburn Last Admin: 02/04/18 03:17 Dose: 30 ml Aspirin (Ecotrin) 81 mg PO DAILY [facility] Last Admin: 02/06/18 08:28 Dose: Not Given Benzocaine/Menthol (Cepacol Sore Throat) 1 mariangel PO Q6 PRN PRN Reason: Sore Throat Last Admin: 02/04/18 00:58 Dose: 1 mariangel Enoxaparin Sodium (Lovenox) 40 mg SC DAILY [facility]; Protocol Last Admin: 02/05/18 10:26 Dose: Not Given Ergocalciferol (Drisdol 50,000 Intl Units Cap) 1 cap PO TU [facility] Piperacillin Sod/Tazobactam (Sod 3.375 gm/ Sodium Chloride) 100 mls @ 100 mls/hr IVPB Q8 [facility]; Protocol Last Admin: 02/06/18 08:34 Dose: 100 mls/hr Vancomycin HCl 1 gm/ Sodium (Chloride) 250 mls @ 166.667 mls/hr IVPB Q12 [facility]; Protocol Last Admin: 02/06/18 08:35 Dose: 166.667 mls/hr Lactobacillus Acidophilus (Bacid Acidophilus) 1 cap PO BID [facility] Last Admin: 02/06/18 08:28 Dose: Not Given Levothyroxine Sodium (Synthroid) 75 mcg PO DAILY@0630 [facility] Last Admin: 02/06/18 06:23 Dose: 75 mcg Pantoprazole Sodium (Protonix Ec Tab) 40 mg PO DAILY [facility] Last Admin: 02/06/18 08:28 Dose: Not Given Physical Exam - Constitutional Appears: Non-toxic, Confused, Chronically Ill - Head Exam Head Exam: NORMOCEPHALIC - Eye Exam Eye Exam: EOMI, PERRL - ENT Exam ENT Exam: Mucous Membranes Dry - Neck Exam Neck exam: Positive for: Full Rom - Respiratory Exam Respiratory Exam: Decreased Breath Sounds - Cardiovascular Exam Cardiovascular Exam: REGULAR RHYTHM - GI/Abdominal Exam GI & Abdominal Exam: Diminished Bowel Sounds - Rectal Exam Rectal Exam: Deferred - Extremities Exam Extremities exam: Positive for: full ROM, tenderness, pedal pulses present. Negative for: normal inspection - Back Exam Back exam: absent: CVA tenderness (L), CVA tenderness (R) - Neurological Exam Neurological exam: Alert, CN II-XII Intact - Psychiatric Exam Psychiatric exam: Normal Mood - Skin Skin Exam: Dry Results - Vital Signs Recent Vital Signs: Last Vital Signs Temp 97.6 F 02/06/18 08:49 Pulse 85 02/06/18 08:49 Resp 20 02/06/18 08:49 BP 108/70 02/06/18 08:49 Pulse Ox 95 02/06/18 08:49 - Labs Result Diagrams: 02/07/18 05:30 02/07/18 05:30 Labs: Laboratory Results - last 24 hr 02/05/18 02/05/18 02/06/18 16:52 16:52 05:45 WBC 12.6 H RBC 4.12 L Hgb 13.6 Hct 40.8 MCV 98.9 H MCH 33.0 H MCHC 33.4 RDW 15.1 H Plt Count 298 ESR 92 H Sodium Potassium Chloride Carbon Dioxide Anion Gap BUN Creatinine Est GFR ( Amer) Est GFR (Non-Af Amer) Random Glucose Calcium Total Bilirubin AST ALT Alkaline Phosphatase C-Reactive Protein 240.90 H Total Protein Albumin Globulin Albumin/Globulin Ratio 02/06/18 05:45 WBC RBC Hgb Hct MCV MCH MCHC RDW Plt Count ESR Sodium 139 Potassium 4.3 Chloride 101 Carbon Dioxide 30 Anion Gap 12 BUN 13 Creatinine 1.1 Est GFR ( Amer) > 60 Est GFR (Non-Af Amer) > 60 Random Glucose 125 H Calcium 8.5 Total Bilirubin 0.6 AST 50 ALT 50 Alkaline Phosphatase 103 C-Reactive Protein Total Protein 7.4 Albumin 3.2 L Globulin 4.1 H Albumin/Globulin Ratio 0.8 L Assessment & Plan (1) Cellulitis Status: Acute - Assessment and Plan (Free Text) Assessment: abscess right foot for I and D await MRI/ culltures
--- NOTE | 2018-02-06 14:29 | US ---
Date of service: 02/06/2018 PROCEDURE: LIMITED RIGHT FOOT SOFT TISSUE ULTRASOUND HISTORY: R/O Abscess Right Foot COMPARISON: MRI RIGHT FOOT 02/05/2018. TECHNIQUE: High-resolution ultrasonography of the dorsal right foot was performed for evaluation of edema/abscess. Grayscale and color Doppler technique was utilized in multiple projections. FINDINGS: Edematous subcutaneous fatty changes are identified within superficial and deep subcutaneous fat without fluid collection to indicate abscess specifically. There is only partial blood flow identified in a superficial vein in the dorsal foot suggestive of thrombophlebitis. IMPRESSION: No abscess appreciable or other suspicious fluid collection. Extensive cellulitis is appreciate throughout the forefoot and midfoot superficial and deep subcutaneous fat. Thrombophlebitis is appreciated a dorsal foot superficial vein as discussed above.
--- NOTE | 2018-02-06 17:25 | CP.PCM.PN ---
<Kash Liriano - Last Filed: 02/06/18 17:21> Subjective - Date & Time of Evaluation Date of Evaluation: 02/06/18 Time of Evaluation: 08:00 - Subjective Subjective: Pt seen and evaluated with Dr. Thompson this morning. Seen sleeping comfortably in bed. No complaints endorsed. Discussed case with Podiatry team- considering OR as foot swelling/redness not improving and ESR and CRP worsening. Objective - Vital Signs/Intake and Output Vital Signs (last 24 hours): Temp Pulse Resp BP Pulse Ox 97.4 F L 88 20 114/78 94 L 02/06/18 16:54 02/06/18 16:54 02/06/18 16:54 02/06/18 16:54 02/06/18 16:54 - Medications Medications: Current Medications Acetaminophen (Tylenol 325mg Tab) 650 mg PO Q6 PRN PRN Reason: temp 101 Acetaminophen (Tylenol 325mg Tab) 650 mg PO Q6 PRN PRN Reason: Pain, Mild (1-3) Last Admin: 02/04/18 22:50 Dose: 650 mg Al Hydrox/Mg Hydrox/Simethicone (Maalox Plus 30 Ml) 30 ml PO Q6 PRN PRN Reason: Indigestion / Heartburn Last Admin: 02/04/18 03:17 Dose: 30 ml Aspirin (Ecotrin) 81 mg PO DAILY [facility] Last Admin: 02/06/18 08:28 Dose: Not Given Bacitracin (Bacitracin Oint) 1 applic TOP DAILY [facility] Benzocaine/Menthol (Cepacol Sore Throat) 1 mariangel PO Q6 PRN PRN Reason: Sore Throat Last Admin: 02/04/18 00:58 Dose: 1 mariangel Enoxaparin Sodium (Lovenox) 40 mg SC DAILY [facility]; Protocol Last Admin: 02/05/18 10:26 Dose: Not Given Ergocalciferol (Drisdol 50,000 Intl Units Cap) 1 cap PO TU [facility] Piperacillin Sod/Tazobactam (Sod 3.375 gm/ Sodium Chloride) 100 mls @ 100 mls/hr IVPB Q8 [facility]; Protocol Last Admin: 02/06/18 16:03 Dose: 100 mls/hr Vancomycin HCl 1 gm/ Sodium (Chloride) 250 mls @ 166.667 mls/hr IVPB Q12 [facility]; Protocol Last Admin: 02/06/18 08:35 Dose: 166.667 mls/hr Lactobacillus Acidophilus (Bacid Acidophilus) 1 cap PO BID [facility] Last Admin: 02/06/18 16:04 Dose: 1 cap Levothyroxine Sodium (Synthroid) 75 mcg PO DAILY@0630 [facility] Last Admin: 02/06/18 06:23 Dose: 75 mcg Pantoprazole Sodium (Protonix Ec Tab) 40 mg PO DAILY [facility] Last Admin: 02/06/18 08:28 Dose: Not Given - Labs Labs: 02/06/18 05:45 02/06/18 05:45 - Constitutional Appears: No Acute Distress - Eye Exam Eye Exam: Normal appearance - ENT Exam ENT Exam: Mucous Membranes Moist - Respiratory Exam Respiratory Exam: Clear to Ausculation Bilateral - Cardiovascular Exam Cardiovascular Exam: REGULAR RHYTHM - Extremities Exam Extremities Exam: Normal Capillary Refill. absent: Calf Tenderness, Pedal Edema Additional comments: Right foot wrapped in nicole bandage. Good capillary refill in toes. Motor and sensory in tact, pink color. - Neurological Exam Neurological Exam: Alert, Awake - Psychiatric Exam Psychiatric exam: Normal Affect - Skin Skin Exam: Normal Color Assessment and Plan - Assessment and Plan (Free Text) Assessment: 42 y/o male with hx of down syndrome, hypothyroidism presents with complaints of right lower foot pain, redness, and swelling x3 days. Also complains of sore throat. Cellulites -Podiatry consulted- Lower Ext Joint MRI ordered-- no drainable abscess, no osteomylitis -Bcx positive for MSSA; ID consulted (Dr. Dia) -C/W Vancomysin and Zosyn -Tetanus vaccine -Cepacol lozenge for sore throat -C/W home meds as ordered <Hardy Thompson - Last Filed: 02/08/18 17:34> Objective - Vital Signs/Intake and Output Vital Signs (last 24 hours): Temp Pulse Resp BP Pulse Ox 97.6 F 69 18 100/69 97 02/08/18 16:28 02/08/18 16:28 02/08/18 16:28 02/08/18 16:28 02/08/18 16:28 - Medications Medications: Current Medications Acetaminophen (Tylenol 325mg Tab) 650 mg PO Q6 PRN PRN Reason: temp 101 Last Admin: 02/08/18 09:03 Dose: 650 mg Acetaminophen (Tylenol 325mg Tab) 650 mg PO Q6 PRN PRN Reason: Pain, Mild (1-3) Last Admin: 02/04/18 22:50 Dose: 650 mg Al Hydrox/Mg Hydrox/Simethicone (Maalox Plus 30 Ml) 30 ml PO Q6 PRN PRN Reason: Indigestion / Heartburn Last Admin: 02/04/18 03:17 Dose: 30 ml Aspirin (Ecotrin) 81 mg PO DAILY [facility] Last Admin: 02/08/18 08:56 Dose: 81 mg Bacitracin (Bacitracin Oint) 1 applic TOP DAILY [facility] Last Admin: 02/08/18 16:35 Dose: Not Given Benzocaine/Menthol (Cepacol Sore Throat) 1 mariangel PO Q6 PRN PRN Reason: Sore Throat Last Admin: 02/04/18 00:58 Dose: 1 mariangel Enoxaparin Sodium (Lovenox) 40 mg SC DAILY [facility]; Protocol Last Admin: 02/08/18 09:07 Dose: Not Given Ergocalciferol (Drisdol 50,000 Intl Units Cap) 1 cap PO TU [facility] Cefazolin Sodium 2 gm/ Sodium (Chloride) 100 mls @ 100 mls/hr IVPB Q8 [facility]; Protocol Last Admin: 02/08/18 16:29 Dose: 100 mls/hr Lactobacillus Acidophilus (Bacid Acidophilus) 1 cap PO BID [facility] Last Admin: 02/08/18 16:29 Dose: 1 cap Levothyroxine Sodium (Synthroid) 75 mcg PO DAILY@0630 [facility] Last Admin: 02/08/18 06:37 Dose: 75 mcg Pantoprazole Sodium (Protonix Ec Tab) 40 mg PO DAILY [facility] Last Admin: 02/08/18 08:56 Dose: 40 mg - Labs Labs: 02/08/18 06:00 02/08/18 06:00 Assessment and Plan - Assessment and Plan (Free Text) Assessment: Patient was personally seen and examined by me in rounds with residents. Available labs and diagnostic data reviewed. Case, Patient's condition and management plan discussed with residents in rounds. Agree with resident's progress note. Plan: As ordered.
[2018-02-07] MEDS: Piperacillin/Tazobact 3.375 GM in Sodium Chloride 0.9% 100 ML IVPB SCH ×3 (00:10→16:31)
[2018-02-07] MEDS: Levothyroxine 75 MCG TAB PO SCH (05:51)
[2018-02-07 06:49] LABS: HEMOGLOBIN 12.9 g/dL (12.0-18.0); MEAN CORPUSCULAR HEMOGLOBIN 33.1 pg (27.0-31.0); MEAN CORPUSCULAR HGB CONC 33.5 g/dL (33.0-37.0); RBC 3.9 Mil/uL (4.40-5.90); RED CELL DISTRIBUTION WIDTH 14.9 % (11.5-14.5); WHITE BLOOD COUNT 12.3 K/uL (4.8-10.8)
[2018-02-07 07:09] LABS: ALB/GLOB RATIO 0.7 (1.0-2.1); ALBUMIN 3.1 g/dL (3.5-5.0); ALT/SGPT 74 U/L (21-72); AST/SGOT 68 U/L (17-59); BLOOD UREA NITROGEN 12 mg/dl (9-20); CALCIUM 8.5 mg/dL (8.4-10.2); GFR NON-AFRICAN AMERICAN > 60
[2018-02-07] MEDS: Lactobacillus Acidophilus 500 MU Cap PO SCH ×2 (08:25→16:31)
[2018-02-07] MEDS: Bacitracin OINT 15GM TOP SCH (08:25)
[2018-02-07] MEDS: Pantoprazole 40 mg EC Tab PO SCH (08:25)
--- NOTE | 2018-02-07 11:49 | CP.PCM.PN ---
Subjective - Date & Time of Evaluation Date of Evaluation: 02/07/18 Time of Evaluation: 11:49 - Subjective Subjective: Podiatry Progress Note - Dr. Isidro 42 y/o male patient was seen and evaluated at bedside for right foot cellulitis. Patient denies any pain at present but says it occasionally hurts. Dressing and surgical shoe in place to right foot. Denies overnight events. Denies F/C/N/V/CP/SOB Objective - Vital Signs/Intake and Output Vital Signs (last 24 hours): Temp Pulse Resp BP Pulse Ox 97.9 F 92 H 20 100/68 97 02/07/18 08:05 02/07/18 08:05 02/07/18 08:05 02/07/18 08:05 02/07/18 08:05 - Medications Medications: Current Medications Acetaminophen (Tylenol 325mg Tab) 650 mg PO Q6 PRN PRN Reason: temp 101 Acetaminophen (Tylenol 325mg Tab) 650 mg PO Q6 PRN PRN Reason: Pain, Mild (1-3) Last Admin: 02/04/18 22:50 Dose: 650 mg Al Hydrox/Mg Hydrox/Simethicone (Maalox Plus 30 Ml) 30 ml PO Q6 PRN PRN Reason: Indigestion / Heartburn Last Admin: 02/04/18 03:17 Dose: 30 ml Aspirin (Ecotrin) 81 mg PO DAILY [facility] Last Admin: 02/07/18 08:25 Dose: 81 mg Bacitracin (Bacitracin Oint) 1 applic TOP DAILY [facility] Last Admin: 02/07/18 08:25 Dose: 1 applic Benzocaine/Menthol (Cepacol Sore Throat) 1 mariangel PO Q6 PRN PRN Reason: Sore Throat Last Admin: 02/04/18 00:58 Dose: 1 mariangel Enoxaparin Sodium (Lovenox) 40 mg SC DAILY [facility]; Protocol Last Admin: 02/05/18 10:26 Dose: Not Given Ergocalciferol (Drisdol 50,000 Intl Units Cap) 1 cap PO TU [facility] Piperacillin Sod/Tazobactam (Sod 3.375 gm/ Sodium Chloride) 100 mls @ 100 mls/hr IVPB Q8 [facility]; Protocol Last Admin: 02/07/18 08:27 Dose: 100 mls/hr Vancomycin HCl 1 gm/ Sodium (Chloride) 250 mls @ 166.667 mls/hr IVPB Q12 [facility]; Protocol Last Admin: 02/07/18 08:26 Dose: 166.667 mls/hr Lactobacillus Acidophilus (Bacid Acidophilus) 1 cap PO BID [facility] Last Admin: 02/07/18 08:25 Dose: 1 cap Levothyroxine Sodium (Synthroid) 75 mcg PO DAILY@0630 [facility] Last Admin: 02/07/18 05:51 Dose: 75 mcg Pantoprazole Sodium (Protonix Ec Tab) 40 mg PO DAILY [facility] Last Admin: 02/07/18 08:25 Dose: 40 mg - Labs Labs: 02/07/18 05:30 02/07/18 05:30 - Constitutional Appears: Well, Non-toxic, No Acute Distress - Extremities Exam Additional comments: Right lower extremity exam: VASC: DP 1/4, PT 2/4. CFT less than 3 seconds X 5. Significantly improving non-pitting edema noted to the dorsum of the right foot. Temperature gradient warm to warm NEURO: grossly intact DERM: mild erythema and edema noted to the dorsum of the right foot from the level of the ankle joint to the level of the MPJs. Centrally located circular incision noted over the third interspace with efren-wound warmth and minimal fluctuance. No malodor, no drainage, no probe to bone. Interdigital maceration noted in interspace 2nd, 3rd, and 4th. No drainage, no open wounds ORTHO: mild pain on palpation over the dorsum of the foot, mild pain with range of motion of the 3rd, 4th and 5th digits. No pain with ankle range of motion, MMT 5/5 in all directions - Neurological Exam Neurological Exam: Alert, Awake - Psychiatric Exam Psychiatric exam: Normal Affect, Normal Mood Assessment and Plan - Assessment and Plan (Free Text) Assessment: 42 y/o male seen and evaluated for R foot cellulitis Plan: Patient seen and evaluated at bedside Plan discussed with attending Dr. Isidro Chart, labs and vitals were reviewed- afebrile at this time, positive leukocytosis, WBC 12.3, trending down ESR 92, CRP 240.90 Continue IV Abx Right foot x-rays- extensive soft tissue swelling noted to the dorsum of the foot at the level of the metatarsals, no osseous abnormality, no foreign body visible MRI Right Foot- extensive dorsal soft tissue edema, no definitive abscess, US is advised to r/o abscess U/S negative for abscess formation Will continue to monitor site - fluctuance noted to be decreasing No plan for surgical intervention at present Stable dressing change performed with bacitracin, AUDRA Podiatry will continue to follow patient while in house
[2018-02-07] MEDS: Enoxaparin 40 mg Syringe SC SCH (12:18)
--- NOTE | 2018-02-07 12:31 | PN ---
DATE: 02/07/2018 SUBJECTIVE: Patient was seen and examined. Interim events noted. Consults noted and appreciated. Patient remains in regular medical floor. Awake and responsive. Poorly communicating. Patient still has some pain in the left, but no worsening of the pain. Pain is actually getting better. No chest pain. No shortness of breath. PHYSICAL EXAMINATION: GENERAL: Patient is in no acute distress. VITAL SIGNS: Stable. HEART: S1 and S2 normal and regular. LUNGS: Good bilateral air exchange. ABDOMEN: Soft and nontender. EXTREMITIES: Right lower extremity foot is under podiatry dressing. No sign of distal acute neurovascular complications. Patient is able to move toes and has intact sensation. Otherwise, patient has no edema. No calf swelling. No tenderness. No acute ischemia. 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 DIAGNOSTIC DATA: Available diagnostic data reviewed. Overall patient's general medication condition is stable and improving. PLAN: As ordered. Hardy Thompson MD
--- NOTE | 2018-02-07 22:12 | CP.PCM.PN ---
Subjective - Date & Time of Evaluation Date of Evaluation: 02/07/18 Time of Evaluation: 09:00 - Subjective Subjective: no definite abscess no OM Blood + MSSA cont IV antibiotics for now / wound care Objective - Vital Signs/Intake and Output Vital Signs (last 24 hours): Temp Pulse Resp BP Pulse Ox 98.1 F 69 18 99/67 L 95 02/07/18 17:00 02/07/18 17:00 02/07/18 17:00 02/07/18 17:00 02/07/18 17:00 - Medications Medications: Current Medications Acetaminophen (Tylenol 325mg Tab) 650 mg PO Q6 PRN PRN Reason: temp 101 Acetaminophen (Tylenol 325mg Tab) 650 mg PO Q6 PRN PRN Reason: Pain, Mild (1-3) Last Admin: 02/04/18 22:50 Dose: 650 mg Al Hydrox/Mg Hydrox/Simethicone (Maalox Plus 30 Ml) 30 ml PO Q6 PRN PRN Reason: Indigestion / Heartburn Last Admin: 02/04/18 03:17 Dose: 30 ml Aspirin (Ecotrin) 81 mg PO DAILY [facility] Last Admin: 02/07/18 08:25 Dose: 81 mg Bacitracin (Bacitracin Oint) 1 applic TOP DAILY [facility] Last Admin: 02/07/18 08:25 Dose: 1 applic Benzocaine/Menthol (Cepacol Sore Throat) 1 mariangel PO Q6 PRN PRN Reason: Sore Throat Last Admin: 02/04/18 00:58 Dose: 1 mariangel Enoxaparin Sodium (Lovenox) 40 mg SC DAILY [facility]; Protocol Last Admin: 02/07/18 12:18 Dose: 40 mg Ergocalciferol (Drisdol 50,000 Intl Units Cap) 1 cap PO TU [facility] Piperacillin Sod/Tazobactam (Sod 3.375 gm/ Sodium Chloride) 100 mls @ 100 mls/hr IVPB Q8 [facility]; Protocol Last Admin: 02/07/18 16:31 Dose: 100 mls/hr Vancomycin HCl 1 gm/ Sodium (Chloride) 250 mls @ 166.667 mls/hr IVPB Q12 [facility]; Protocol Last Admin: 02/07/18 20:25 Dose: 166.667 mls/hr Lactobacillus Acidophilus (Bacid Acidophilus) 1 cap PO BID [facility] Last Admin: 02/07/18 16:31 Dose: 1 cap Levothyroxine Sodium (Synthroid) 75 mcg PO DAILY@0630 [facility] Last Admin: 02/07/18 05:51 Dose: 75 mcg Pantoprazole Sodium (Protonix Ec Tab) 40 mg PO DAILY [facility] Last Admin: 02/07/18 08:25 Dose: 40 mg - Labs Labs: 02/07/18 05:30 02/07/18 05:30 Assessment and Plan (1) Cellulitis Status: Acute
[2018-02-08] MEDS: ceFAZolin 2 GM in Sodium Chloride 0.9% 100 ML IVPB SCH ×3 (00:19→16:29)
[2018-02-08] MEDS: Levothyroxine 75 MCG TAB PO SCH (06:37)
[2018-02-08 07:33] LABS: HEMOGLOBIN 13.1 g/dL (12.0-18.0); MEAN CELL VOLUME 98.3 fl (80.0-94.0); MEAN CORPUSCULAR HEMOGLOBIN 32.9 pg (27.0-31.0); MEAN CORPUSCULAR HGB CONC 33.5 g/dL (33.0-37.0); RBC 3.98 Mil/uL (4.40-5.90); RED CELL DISTRIBUTION WIDTH 15.4 % (11.5-14.5); WHITE BLOOD COUNT 10.6 K/uL (4.8-10.8)
[2018-02-08 07:52] LABS: ALB/GLOB RATIO 0.8 (1.0-2.1); ALBUMIN 3.2 g/dL (3.5-5.0); ALT/SGPT 85 U/L (21-72); AST/SGOT 56 U/L (17-59); BLOOD UREA NITROGEN 12 mg/dl (9-20); CALCIUM 8.5 mg/dL (8.4-10.2); GFR NON-AFRICAN AMERICAN > 60
[2018-02-08] MEDS: Pantoprazole 40 mg EC Tab PO SCH (08:56)
[2018-02-08] MEDS: Enoxaparin 40 mg Syringe SC SCH ×2 (08:56→09:07)
[2018-02-08] MEDS: Lactobacillus Acidophilus 500 MU Cap PO SCH ×2 (08:59→16:29)
--- NOTE | 2018-02-08 10:25 | PN ---
DATE: 02/08/2018 SUBJECTIVE: The patient seen and examined. Interim events noted. Consults noted and appreciated. Podiatry and Infectious Disease followup and intervention noted and appreciated. The patient remains in regular medical floor, on IV antibiotic for previous cellulitis of right lower extremity. The patient feels okay. Pain is still present but improving. No chest pain. No shortness of breath. PHYSICAL EXAMINATION: GENERAL: The patient is in no acute distress. VITAL SIGNS: Stable. HEART: S1 and S2, normal and regular. LUNGS: Good bilateral air exchange. ABDOMEN: Soft, nontender. EXTREMITIES: Right lower extremity is under podiatry dressing. The patient is able to move toes. No cyanosis, clubbing, or vascular compromise. No edema. No calf swelling. No tenderness. No acute ischemia. REVIEW ENGINEER: Exam is essentially unchanged. DIAGNOSTIC DATA: Available diagnostic data reviewed. ASSESSMENT AND PLAN: Overall, the patient is medically stable and improved. Plan as ordered. Hardy Thompson MD
--- NOTE | 2018-02-08 12:17 | CP.PCM.PN ---
Subjective - Date & Time of Evaluation Date of Evaluation: 02/08/18 Time of Evaluation: 12:17 - Subjective Subjective: Podiatry Progress Note - Dr. Isidro 42 y/o male patient was seen and evaluated at bedside for right foot cellulitis. Patient's brother at visit. Seen simultaneously with attending Dr. Dia. Patient denies any pain to the right foot. Dressing and surgical shoe in place to right foot. Denies any acute overnight events. Denies F/C/N/V/CP/SOB Objective - Vital Signs/Intake and Output Vital Signs (last 24 hours): Temp Pulse Resp BP Pulse Ox 98.3 F 85 20 103/70 97 02/08/18 08:34 02/08/18 08:34 02/08/18 08:34 02/08/18 08:34 02/08/18 08:34 - Medications Medications: Current Medications Acetaminophen (Tylenol 325mg Tab) 650 mg PO Q6 PRN PRN Reason: temp 101 Last Admin: 02/08/18 09:03 Dose: 650 mg Acetaminophen (Tylenol 325mg Tab) 650 mg PO Q6 PRN PRN Reason: Pain, Mild (1-3) Last Admin: 02/04/18 22:50 Dose: 650 mg Al Hydrox/Mg Hydrox/Simethicone (Maalox Plus 30 Ml) 30 ml PO Q6 PRN PRN Reason: Indigestion / Heartburn Last Admin: 02/04/18 03:17 Dose: 30 ml Aspirin (Ecotrin) 81 mg PO DAILY [facility] Last Admin: 02/08/18 08:56 Dose: 81 mg Bacitracin (Bacitracin Oint) 1 applic TOP DAILY [facility] Last Admin: 02/07/18 08:25 Dose: 1 applic Benzocaine/Menthol (Cepacol Sore Throat) 1 mariangel PO Q6 PRN PRN Reason: Sore Throat Last Admin: 02/04/18 00:58 Dose: 1 mariangel Enoxaparin Sodium (Lovenox) 40 mg SC DAILY [facility]; Protocol Last Admin: 02/08/18 09:07 Dose: Not Given Ergocalciferol (Drisdol 50,000 Intl Units Cap) 1 cap PO [facility] [place] Cefazolin Sodium 2 gm/ Sodium (Chloride) 100 mls @ 100 mls/hr IVPB Q8 [facility]; Protocol Last Admin: 02/08/18 08:59 Dose: 100 mls/hr Lactobacillus Acidophilus (Bacid Acidophilus) 1 cap PO BID [facility] Last Admin: 02/08/18 08:59 Dose: 1 cap Levothyroxine Sodium (Synthroid) 75 mcg PO DAILY@0630 [facility] Last Admin: 02/08/18 06:37 Dose: 75 mcg Pantoprazole Sodium (Protonix Ec Tab) 40 mg PO DAILY [facility] Last Admin: 02/08/18 08:56 Dose: 40 mg - Labs Labs: 02/08/18 06:00 02/08/18 06:00 - Constitutional Appears: Well, Non-toxic, No Acute Distress - Extremities Exam Additional comments: Right lower extremity exam: VASC: DP 1/4, PT 2/4. CFT less than 3 seconds X 5. Significantly improving non- pitting edema noted to the dorsum of the right foot. Temperature gradient warm t o warm NEURO: protective sensation grossly intact DERM: Mild localized erythema to dorsum of lateral forefoot at level of 4th MPJ. Centrally located circular incision noted over the third interspace with efren- wound warmth and minimal fluctuance, decreasing since admission. No malodor, no drainage, no probe to bone. Interdigital maceration noted in interspace 2nd, 3rd, and 4th. No drainage, no open wounds ORTHO: mild pain on palpation over the dorsum of the foot, mild pain with range of motion of the 3rd, 4th and 5th digits. No pain with ankle range of motion, MMT 5/5 in all directions - Neurological Exam Neurological Exam: Alert, Awake - Psychiatric Exam Psychiatric exam: Normal Affect, Normal Mood Assessment and Plan - Assessment and Plan (Free Text) Assessment: 42 y/o male seen and evaluated for R dorsolateral forefoot cellulitis Plan: Patient seen and evaluated at bedside Plan discussed with attending Dr. Isidro Afebrile, leukocytosis trending down (WBC 10.6) ESR 92, CRP 240.90 Blood cx shows growth of S. aureus Continue IV Ancef, per Dr. Dia will switch to PO Keflex in a few days Right foot x-rays- extensive soft tissue swelling noted to the dorsum of the foot at the level of the metatarsals, no osseous abnormality, no foreign body visible MRI Right Foot- extensive dorsal soft tissue edema, no definitive abscess, US is advised to r/o abscess U/S negative for abscess formation Will continue to monitor site - fluctuance noted to be decreasing No plan for surgical intervention at present Stable dressing change performed with AUDRA leal Podiatry will continue to follow patient while in house
--- NOTE | 2018-02-08 12:19 | CP.PCM.PN ---
Subjective - Date & Time of Evaluation Date of Evaluation: 02/08/18 Time of Evaluation: 09:00 - Subjective Subjective: events noted IV rx in progress OM negative Objective - Vital Signs/Intake and Output Vital Signs (last 24 hours): Temp Pulse Resp BP Pulse Ox 98.3 F 85 20 103/70 97 02/08/18 08:34 02/08/18 08:34 02/08/18 08:34 02/08/18 08:34 02/08/18 08:34 - Medications Medications: Current Medications Acetaminophen (Tylenol 325mg Tab) 650 mg PO Q6 PRN PRN Reason: temp 101 Last Admin: 02/08/18 09:03 Dose: 650 mg Acetaminophen (Tylenol 325mg Tab) 650 mg PO Q6 PRN PRN Reason: Pain, Mild (1-3) Last Admin: 02/04/18 22:50 Dose: 650 mg Al Hydrox/Mg Hydrox/Simethicone (Maalox Plus 30 Ml) 30 ml PO Q6 PRN PRN Reason: Indigestion / Heartburn Last Admin: 02/04/18 03:17 Dose: 30 ml Aspirin (Ecotrin) 81 mg PO DAILY [facility] Last Admin: 02/08/18 08:56 Dose: 81 mg Bacitracin (Bacitracin Oint) 1 applic TOP DAILY [facility] Last Admin: 02/07/18 08:25 Dose: 1 applic Benzocaine/Menthol (Cepacol Sore Throat) 1 mariangel PO Q6 PRN PRN Reason: Sore Throat Last Admin: 02/04/18 00:58 Dose: 1 mariangel Enoxaparin Sodium (Lovenox) 40 mg SC DAILY [facility]; Protocol Last Admin: 02/08/18 09:07 Dose: Not Given Ergocalciferol (Drisdol 50,000 Intl Units Cap) 1 cap PO TU [facility] Cefazolin Sodium 2 gm/ Sodium (Chloride) 100 mls @ 100 mls/hr IVPB Q8 [facility]; Protocol Last Admin: 02/08/18 08:59 Dose: 100 mls/hr Lactobacillus Acidophilus (Bacid Acidophilus) 1 cap PO BID [facility] Last Admin: 02/08/18 08:59 Dose: 1 cap Levothyroxine Sodium (Synthroid) 75 mcg PO DAILY@0630 [facility] Last Admin: 02/08/18 06:37 Dose: 75 mcg Pantoprazole Sodium (Protonix Ec Tab) 40 mg PO DAILY [facility] Last Admin: 02/08/18 08:56 Dose: 40 mg - Labs Labs: 02/08/18 06:00 02/08/18 06:00 - Constitutional Appears: Non-toxic, Chronically Ill - Head Exam Head Exam: NORMOCEPHALIC - Eye Exam Eye Exam: absent: Scleral icterus - ENT Exam ENT Exam: Mucous Membranes Dry - Neck Exam Neck Exam: absent: Lymphadenopathy - Respiratory Exam Respiratory Exam: Decreased Breath Sounds - Cardiovascular Exam Cardiovascular Exam: REGULAR RHYTHM - GI/Abdominal Exam GI & Abdominal Exam: Distended - Rectal Exam Rectal Exam: Deferred - Exam Exam: NORMAL INSPECTION Assessment and Plan (1) Cellulitis Status: Acute - Assessment and Plan (Free Text) Plan: switched to IV Ancef
[2018-02-08] MEDS: Bacitracin OINT 15GM TOP SCH (16:35)
[2018-02-09] MEDS: ceFAZolin 2 GM in Sodium Chloride 0.9% 100 ML IVPB SCH ×3 (00:30→18:10)
[2018-02-09 06:34] LABS: HEMOGLOBIN 12.7 g/dL (12.0-18.0); MEAN CELL VOLUME 101.1 fl (80.0-94.0); MEAN CORPUSCULAR HGB CONC 36.6 g/dL (33.0-37.0); RBC 3.44 Mil/uL (4.40-5.90); RED CELL DISTRIBUTION WIDTH 15.4 % (11.5-14.5); WHITE BLOOD COUNT 9.2 K/uL (4.8-10.8)
[2018-02-09 06:45] LABS: ALB/GLOB RATIO 0.8 (1.0-2.1); ALBUMIN 3.2 g/dL (3.5-5.0); ALT/SGPT 67 U/L (21-72); AST/SGOT 44 U/L (17-59); BLOOD UREA NITROGEN 13 mg/dl (9-20); CALCIUM 8.3 mg/dL (8.4-10.2); GFR NON-AFRICAN AMERICAN > 60
[2018-02-09] MEDS: Levothyroxine 75 MCG TAB PO SCH (07:19)
[2018-02-09] MEDS: Enoxaparin 40 mg Syringe SC SCH ×2 (09:18→09:38)
[2018-02-09] MEDS: Pantoprazole 40 mg EC Tab PO SCH (09:19)
[2018-02-09] MEDS: Lactobacillus Acidophilus 500 MU Cap PO SCH ×2 (09:24→18:10)
[2018-02-09] MEDS: Bacitracin OINT 15GM TOP SCH (10:59)
--- NOTE | 2018-02-09 11:09 | PN ---
DATE: 02/09/2018 SUBJECTIVE: The patient is seen and examined. Interim events noted. Consults noted and appreciated. The patient remains in regular medical floor. Infectious Disease and Podiatry followup and interventions noted and appreciated. The patient feels okay. Pain increased. No chest pain or shortness of breath. PHYSICAL EXAMINATION: GENERAL: The patient is in no acute distress. VITAL SIGNS: Stable. HEART: S1, S2 normal and regular. LUNGS: Good bilateral air exchange. ABDOMEN: Soft, nontender. EXTREMITIES: Cellulitis is improving. No sign of distal neurovascular compromise. CENTRAL NERVOUS SYSTEM: Essentially unchanged. DIAGNOSTIC DATA: Available diagnostic data reviewed. ASSESSMENT AND PLAN: Overall, the patient's general medical condition is stable. Plan as ordered. Hardy Thompson MD
[2018-02-10] MEDS ORDERED: Ergocalciferol 50,000 Intl Units Cap PO SCH (00:06)
[2018-02-10] MEDS: ceFAZolin 2 GM in Sodium Chloride 0.9% 100 ML IVPB SCH ×3 (01:15→16:27)
[2018-02-10] MEDS: Levothyroxine 75 MCG TAB PO SCH (06:11)
[2018-02-10 06:39] LABS: HEMOGLOBIN 13.2 g/dL (12.0-18.0); MEAN CELL VOLUME 98.5 fl (80.0-94.0); MEAN CORPUSCULAR HEMOGLOBIN 33.1 pg (27.0-31.0); MEAN CORPUSCULAR HGB CONC 33.6 g/dL (33.0-37.0); RBC 3.98 Mil/uL (4.40-5.90); RED CELL DISTRIBUTION WIDTH 14.8 % (11.5-14.5); WHITE BLOOD COUNT 8.4 K/uL (4.8-10.8)
[2018-02-10 06:43] LABS: ALB/GLOB RATIO 0.8 (1.0-2.1); ALBUMIN 3.3 g/dL (3.5-5.0); ALT/SGPT 45 U/L (21-72); AST/SGOT 68 U/L (17-59); BLOOD UREA NITROGEN 14 mg/dl (9-20); CALCIUM 8.4 mg/dL (8.4-10.2); GFR NON-AFRICAN AMERICAN > 60
[2018-02-10] MEDS: Enoxaparin 40 mg Syringe SC SCH ×2 (09:16→09:26)
[2018-02-10] MEDS: Pantoprazole 40 mg EC Tab PO SCH (09:16)
[2018-02-10] MEDS: Lactobacillus Acidophilus 500 MU Cap PO SCH ×2 (09:21→16:26)
[2018-02-10] MEDS: Santyl Collagenase OINTMENT TOP SCH (09:22)
--- NOTE | 2018-02-10 09:26 | CP.PCM.PN ---
Subjective - Date & Time of Evaluation Date of Evaluation: 02/10/18 Time of Evaluation: 08:00 - Subjective Subjective: Pt seen and evaluated at the bedside with Dr. Thompson. Denies complaints. Seen resting comfortably. Objective - Vital Signs/Intake and Output Vital Signs (last 24 hours): Temp Pulse Resp BP Pulse Ox 97.6 F 84 20 149/73 90 L 02/10/18 08:23 02/10/18 08:23 02/10/18 08:23 02/10/18 08:23 02/10/18 08:23 - Medications Medications: Current Medications Acetaminophen (Tylenol 325mg Tab) 650 mg PO Q6 PRN PRN Reason: temp 101 Last Admin: 02/08/18 09:03 Dose: 650 mg Acetaminophen (Tylenol 325mg Tab) 650 mg PO Q6 PRN PRN Reason: Pain, Mild (1-3) Last Admin: 02/10/18 09:21 Dose: 650 mg Al Hydrox/Mg Hydrox/Simethicone (Maalox Plus 30 Ml) 30 ml PO Q6 PRN PRN Reason: Indigestion / Heartburn Last Admin: 02/04/18 03:17 Dose: 30 ml Aspirin (Ecotrin) 81 mg PO DAILY [facility] Last Admin: 02/10/18 09:16 Dose: 81 mg Bacitracin (Bacitracin Oint) 1 applic TOP DAILY [facility] Last Admin: 02/09/18 10:59 Dose: 1 applic Benzocaine/Menthol (Cepacol Sore Throat) 1 mariangel PO Q6 PRN PRN Reason: Sore Throat Last Admin: 02/04/18 00:58 Dose: 1 mariangel Collagenase (Santyl) 1 applic TOP DAILY [facility] Last Admin: 02/10/18 09:22 Dose: 1 applic Enoxaparin Sodium (Lovenox) 40 mg SC DAILY [facility]; Protocol Last Admin: 02/09/18 09:38 Dose: Not Given Ergocalciferol (Drisdol 50,000 Intl Units Cap) 1 cap PO TU [facility] Last Admin: 02/10/18 00:30 Dose: 1 cap Cefazolin Sodium 2 gm/ Sodium (Chloride) 100 mls @ 100 mls/hr IVPB Q8 [facility]; Protocol Last Admin: 02/10/18 09:15 Dose: 100 mls/hr Lactobacillus Acidophilus (Bacid Acidophilus) 1 cap PO BID [facility] Last Admin: 02/10/18 09:21 Dose: 1 cap Levothyroxine Sodium (Synthroid) 75 mcg PO DAILY@0630 [facility] Last Admin: 02/10/18 06:11 Dose: 75 mcg Pantoprazole Sodium (Protonix Ec Tab) 40 mg PO DAILY [facility] Last Admin: 02/10/18 09:16 Dose: 40 mg - Labs Labs: 02/10/18 05:45 02/10/18 05:45 - Constitutional Appears: No Acute Distress - Head Exam Head Exam: NORMAL INSPECTION - Eye Exam Eye Exam: Normal appearance - ENT Exam ENT Exam: Mucous Membranes Moist - Respiratory Exam Respiratory Exam: Clear to Ausculation Bilateral - Cardiovascular Exam Cardiovascular Exam: REGULAR RHYTHM - Extremities Exam Additional comments: right lower extremity, foot wrapped up to mid vargas. Toes exposed, pink, warm, good capillary refill, motor and sensory in tact. - Neurological Exam Neurological Exam: Alert - Psychiatric Exam Psychiatric exam: Normal Affect - Skin Skin Exam: Normal Color Assessment and Plan - Assessment and Plan (Free Text) Assessment: 42 y/o male with hx of down syndrome, hypothyroidism presents with complaints of right lower foot pain, redness, and swelling x3 days. Also complains of sore throat. Cellulites -Podiatry following -Clinically improved. Leukocytosis resolved -Lower Ext Joint MRI ordered-- no drainable abscess, no osteomylitis -Bcx positive for MSSA; ID consulted (Dr. Dia), started on IV Ancef, can be discharged on po keflex -PT to be ordere pending weight bearing status from Podiatry -C/W home meds as ordered
--- NOTE | 2018-02-10 10:03 | CP.PCM.PN ---
Subjective - Date & Time of Evaluation Date of Evaluation: 02/10/18 Time of Evaluation: 09:00 - Subjective Subjective: improving afeb foot less swollen cont rx as planned d/c on PO rx Objective - Vital Signs/Intake and Output Vital Signs (last 24 hours): Temp Pulse Resp BP Pulse Ox 97.6 F 84 20 149/73 90 L 02/10/18 08:23 02/10/18 08:23 02/10/18 08:23 02/10/18 08:23 02/10/18 08:23 - Medications Medications: Current Medications Acetaminophen (Tylenol 325mg Tab) 650 mg PO Q6 PRN PRN Reason: temp 101 Last Admin: 02/08/18 09:03 Dose: 650 mg Acetaminophen (Tylenol 325mg Tab) 650 mg PO Q6 PRN PRN Reason: Pain, Mild (1-3) Last Admin: 02/10/18 09:21 Dose: 650 mg Al Hydrox/Mg Hydrox/Simethicone (Maalox Plus 30 Ml) 30 ml PO Q6 PRN PRN Reason: Indigestion / Heartburn Last Admin: 02/04/18 03:17 Dose: 30 ml Aspirin (Ecotrin) 81 mg PO DAILY [facility] Last Admin: 02/10/18 09:16 Dose: 81 mg Bacitracin (Bacitracin Oint) 1 applic TOP DAILY [facility] Last Admin: 02/09/18 10:59 Dose: 1 applic Benzocaine/Menthol (Cepacol Sore Throat) 1 mariangel PO Q6 PRN PRN Reason: Sore Throat Last Admin: 02/04/18 00:58 Dose: 1 mariangel Collagenase (Santyl) 1 applic TOP DAILY [facility] Last Admin: 02/10/18 09:22 Dose: 1 applic Enoxaparin Sodium (Lovenox) 40 mg SC DAILY [facility]; Protocol Last Admin: 02/10/18 09:26 Dose: Not Given Ergocalciferol (Drisdol 50,000 Intl Units Cap) 1 cap PO TU [facility] Last Admin: 02/10/18 00:30 Dose: 1 cap Cefazolin Sodium 2 gm/ Sodium (Chloride) 100 mls @ 100 mls/hr IVPB Q8 [facility]; Protocol Last Admin: 02/10/18 09:15 Dose: 100 mls/hr Lactobacillus Acidophilus (Bacid Acidophilus) 1 cap PO BID [facility] Last Admin: 02/10/18 09:21 Dose: 1 cap Levothyroxine Sodium (Synthroid) 75 mcg PO DAILY@0630 [facility] Last Admin: 02/10/18 06:11 Dose: 75 mcg Pantoprazole Sodium (Protonix Ec Tab) 40 mg PO DAILY [facility] Last Admin: 02/10/18 09:16 Dose: 40 mg - Labs Labs: 02/10/18 05:45 02/10/18 05:45 Assessment and Plan (1) Cellulitis Status: Acute
--- NOTE | 2018-02-10 15:40 | CP.PCM.PN ---
Subjective - Date & Time of Evaluation Date of Evaluation: 02/10/18 Time of Evaluation: 15:40 - Subjective Subjective: Podiatry progress note for Dr. Isidro 42 y/o male patient seen and evaluated at bedside. Patient resting comfortably, in no acute distress, and dressing C/D/I. As per nursing, no acute overnight events. Objective - Vital Signs/Intake and Output Vital Signs (last 24 hours): Temp Pulse Resp BP Pulse Ox 97.6 F 84 20 149/73 95 02/10/18 09:00 02/10/18 09:00 02/10/18 09:00 02/10/18 09:00 02/10/18 09:00 - Medications Medications: Current Medications Acetaminophen (Tylenol 325mg Tab) 650 mg PO Q6 PRN PRN Reason: temp 101 Last Admin: 02/08/18 09:03 Dose: 650 mg Acetaminophen (Tylenol 325mg Tab) 650 mg PO Q6 PRN PRN Reason: Pain, Mild (1-3) Last Admin: 02/10/18 09:21 Dose: 650 mg Al Hydrox/Mg Hydrox/Simethicone (Maalox Plus 30 Ml) 30 ml PO Q6 PRN PRN Reason: Indigestion / Heartburn Last Admin: 02/04/18 03:17 Dose: 30 ml Aspirin (Ecotrin) 81 mg PO DAILY [facility] Last Admin: 02/10/18 09:16 Dose: 81 mg Bacitracin (Bacitracin Oint) 1 applic TOP DAILY [facility] Last Admin: 02/09/18 10:59 Dose: 1 applic Benzocaine/Menthol (Cepacol Sore Throat) 1 mariangel PO Q6 PRN PRN Reason: Sore Throat Last Admin: 02/04/18 00:58 Dose: 1 mariangel Collagenase (Santyl) 1 applic TOP DAILY [facility] Last Admin: 02/10/18 09:22 Dose: 1 applic Enoxaparin Sodium (Lovenox) 40 mg SC DAILY [facility]; Protocol Last Admin: 02/10/18 09:26 Dose: Not Given Ergocalciferol (Drisdol 50,000 Intl Units Cap) 1 cap PO TU [facility] Last Admin: 02/10/18 00:30 Dose: 1 cap Cefazolin Sodium 2 gm/ Sodium (Chloride) 100 mls @ 100 mls/hr IVPB Q8 [facility]; Protocol Last Admin: 02/10/18 09:15 Dose: 100 mls/hr Lactobacillus Acidophilus (Bacid Acidophilus) 1 cap PO BID [facility] Last Admin: 02/10/18 09:21 Dose: 1 cap Levothyroxine Sodium (Synthroid) 75 mcg PO DAILY@0630 [facility] Last Admin: 02/10/18 06:11 Dose: 75 mcg Pantoprazole Sodium (Protonix Ec Tab) 40 mg PO DAILY [facility] Last Admin: 02/10/18 09:16 Dose: 40 mg - Labs Labs: 02/10/18 05:45 02/10/18 05:45 - Constitutional Appears: Well, Non-toxic, No Acute Distress - Head Exam Head Exam: ATRAUMATIC, NORMOCEPHALIC - Extremities Exam Additional comments: Right lower extremity exam: VASC: DP 1/4, PT 2/4. CFT less than 3 seconds X 5. Significantly improving non-pitting edema noted to the dorsum of the right foot. Temperature gradient warm to warm, improving NEURO: protective sensation grossly intact DERM: Minimal localized erythema to dorsum of lateral forefoot at level of 4th MPJ. Centrally located circular wound measuring 0.5 cm X 0.5 cm with 100% fibrotic base noted over the third interspace with minimal fluctuance, decreasing since admission. No malodor, minimal purulent drainage, no probe to bone. Interdigital maceration noted in interspace 2nd, 3rd, and 4th. No drainage, no open wounds ORTHO: mild pain on palpation over the dorsum of the foot, mild pain with range of motion of the 3rd, 4th and 5th digits. No pain with ankle range of motion, MMT 5/5 in all directions - Neurological Exam Neurological Exam: Alert, Awake, Oriented x3 - Psychiatric Exam Psychiatric exam: Normal Affect, Normal Mood Assessment and Plan - Assessment and Plan (Free Text) Assessment: 42 y/o male seen and evaluated for R dorsolateral forefoot cellulitis Plan: Patient seen and evaluated at bedside Plan discussed with attending Dr. Isidro Afebrile, leukocytosis trending down (WBC 8.4) Blood cx shows growth of S. aureus Repeat blood cultures- no growth after 4 days Continue IV Ancef, per Dr. Dia will switch to PO Keflex upon d/c Right foot x-rays- extensive soft tissue swelling noted to the dorsum of the foot at the level of the metatarsals, no osseous abnormality, no foreign body visible MRI Right Foot- extensive dorsal soft tissue edema, no definitive abscess, US is advised to r/o abscess U/S negative for abscess formation Will continue to monitor site - fluctuance noted to be decreasing No plan for surgical intervention at present Stable dressing change performed with bacitracin, DSD Podiatry will continue to follow patient while in house
[2018-02-10] MEDS: Bacitracin OINT 15GM TOP SCH (17:14)
[2018-02-10 23:40] VITALS: RESP 20
[2018-02-11] MEDS: ceFAZolin 2 GM in Sodium Chloride 0.9% 100 ML IVPB SCH ×2 (00:11→09:19)
[2018-02-11] MEDS: Levothyroxine 75 MCG TAB PO SCH (06:32)
[2018-02-11 08:48] VITALS: BP 103/69; PULSE 76; TEMP 97.6; O2SAT 96
[2018-02-11] MEDS: Bacitracin OINT 15GM TOP SCH (09:19)
[2018-02-11] MEDS: Pantoprazole 40 mg EC Tab PO SCH (09:20)
[2018-02-11] MEDS: Santyl Collagenase OINTMENT TOP SCH (09:20)
[2018-02-11] MEDS: Enoxaparin 40 mg Syringe SC SCH ×2 (09:20→09:33)
[2018-02-11] MEDS: Lactobacillus Acidophilus 500 MU Cap PO SCH (09:26)
--- NOTE | 2018-02-11 10:13 | CP.PCM.PN ---
Subjective - Date & Time of Evaluation Date of Evaluation: 02/11/18 Time of Evaluation: 10:08 - Subjective Subjective: Podiatry progress note for Dr. Isidro 42 y/o male patient seen and evaluated at bedside. Patient resting comfortably, in no acute distress, and dressing C/D/I. As per nursing, no acute overnight events. Patient's family not present at bedside, however state they can perform daily dressing changes. Patient complains of pain only with palpation Objective - Vital Signs/Intake and Output Vital Signs (last 24 hours): Temp Pulse Resp BP Pulse Ox 97.6 F 76 20 103/69 96 02/11/18 08:48 02/11/18 08:48 02/11/18 08:48 02/11/18 08:48 02/11/18 08:48 - Medications Medications: Current Medications Acetaminophen (Tylenol 325mg Tab) 650 mg PO Q6 PRN PRN Reason: temp 101 Last Admin: 02/08/18 09:03 Dose: 650 mg Acetaminophen (Tylenol 325mg Tab) 650 mg PO Q6 PRN PRN Reason: Pain, Mild (1-3) Last Admin: 02/10/18 16:28 Dose: 650 mg Al Hydrox/Mg Hydrox/Simethicone (Maalox Plus 30 Ml) 30 ml PO Q6 PRN PRN Reason: Indigestion / Heartburn Last Admin: 02/04/18 03:17 Dose: 30 ml Aspirin (Ecotrin) 81 mg PO DAILY [facility] Last Admin: 02/11/18 09:20 Dose: 81 mg Bacitracin (Bacitracin Oint) 1 applic TOP DAILY [facility] Last Admin: 02/11/18 09:19 Dose: Not Given Benzocaine/Menthol (Cepacol Sore Throat) 1 mariangel PO Q6 PRN PRN Reason: Sore Throat Last Admin: 02/04/18 00:58 Dose: 1 mariangel Collagenase (Santyl) 1 applic TOP DAILY [facility] Last Admin: 02/11/18 09:20 Dose: 1 applic Enoxaparin Sodium (Lovenox) 40 mg SC DAILY [facility]; Protocol Last Admin: 02/11/18 09:33 Dose: Not Given Ergocalciferol (Drisdol 50,000 Intl Units Cap) 1 cap PO TU [facility] Last Admin: 02/10/18 00:30 Dose: 1 cap Cefazolin Sodium 2 gm/ Sodium (Chloride) 100 mls @ 100 mls/hr IVPB Q8 [facility]; Protocol Last Admin: 02/11/18 09:19 Dose: 100 mls/hr Lactobacillus Acidophilus (Bacid Acidophilus) 1 cap PO BID [facility] Last Admin: 02/11/18 09:26 Dose: 1 cap Levothyroxine Sodium (Synthroid) 75 mcg PO DAILY@0630 [facility] Last Admin: 02/11/18 06:32 Dose: 75 mcg Pantoprazole Sodium (Protonix Ec Tab) 40 mg PO DAILY [facility] Last Admin: 02/11/18 09:20 Dose: 40 mg - Labs Labs: 02/10/18 05:45 02/10/18 05:45 - Constitutional Appears: Well, Non-toxic, No Acute Distress - Head Exam Head Exam: ATRAUMATIC, NORMOCEPHALIC - Extremities Exam Additional comments: Right lower extremity exam: VASC: DP 1/4, PT 2/4. CFT less than 3 seconds X 5. Significantly improving non- pitting edema noted to the dorsum of the right foot. Temperature gradient warm to warm, improving NEURO: protective sensation grossly intact DERM: resolving erythema to dorsum of lateral forefoot at level of 4th MPJ. Centrally located circular wound measuring 0.5 cm X 0.5 cm with 100% fibrotic base noted over the third interspace with no fluctuance noted at this time, No malodor, no purulent drainage, no probe to bone. Improving interdigital maceration noted in interspace 2nd, 3rd, and 4th. No drainage, no open wounds ORTHO: mild pain on palpation over the dorsum of the foot, mild pain with range of motion of the 3rd, 4th and 5th digits. No pain with ankle range of motion, MMT 5/5 in all directions - Neurological Exam Neurological Exam: Alert, Awake, Oriented x3 - Psychiatric Exam Psychiatric exam: Normal Affect, Normal Mood Assessment and Plan - Assessment and Plan (Free Text) Assessment: 42 y/o male seen and evaluated for R dorsolateral forefoot cellulitis Plan: Patient seen and evaluated at bedside Plan discussed with attending Dr. Isidro Afebrile, leukocytosis trending down (WBC 8.4 from 02/10/18) Blood cx shows growth of S. aureus Repeat blood cultures- no growth after 5 days, final results Continue IV Ancef, per Dr. Dia will switch to PO Keflex upon d/c Right foot x-rays- extensive soft tissue swelling noted to the dorsum of the foot at the level of the metatarsals, no osseous abnormality, no foreign body visible MRI Right Foot- extensive dorsal soft tissue edema, no definitive abscess, US is advised to r/o abscess U/S negative for abscess formation No plan for surgical intervention at present Patient to be D/C home on 2 weeks of PO antibiotics Dressing change instructions: clean wound with saline, pat dry, apply small amount of Santyl, and dress with 4X4, kerlix and CHRISTIAN lightly. Apply betadine to all interdigital space to dry the area. Antifungal not recommended at this time to prevent further maceration Patient to follow up with Dr. Isidro in his office upon discharge Podiatry will continue to follow patient while in house
--- NOTE | 2018-02-11 13:16 | CP.PCM.PN ---
Subjective - Date & Time of Evaluation Date of Evaluation: 02/11/18 Time of Evaluation: 09:00 Objective - Vital Signs/Intake and Output Vital Signs (last 24 hours): Temp Pulse Resp BP Pulse Ox 97.6 F 76 20 103/69 96 02/11/18 08:48 02/11/18 08:48 02/11/18 08:48 02/11/18 08:48 02/11/18 08:48 - Medications Medications: Current Medications Acetaminophen (Tylenol 325mg Tab) 650 mg PO Q6 PRN PRN Reason: temp 101 Last Admin: 02/08/18 09:03 Dose: 650 mg Acetaminophen (Tylenol 325mg Tab) 650 mg PO Q6 PRN PRN Reason: Pain, Mild (1-3) Last Admin: 02/10/18 16:28 Dose: 650 mg Al Hydrox/Mg Hydrox/Simethicone (Maalox Plus 30 Ml) 30 ml PO Q6 PRN PRN Reason: Indigestion / Heartburn Last Admin: 02/04/18 03:17 Dose: 30 ml Aspirin (Ecotrin) 81 mg PO DAILY [facility] Last Admin: 02/11/18 09:20 Dose: 81 mg Bacitracin (Bacitracin Oint) 1 applic TOP DAILY [facility] Last Admin: 02/11/18 09:19 Dose: Not Given Benzocaine/Menthol (Cepacol Sore Throat) 1 mariangel PO Q6 PRN PRN Reason: Sore Throat Last Admin: 02/04/18 00:58 Dose: 1 mariangel Collagenase (Santyl) 1 applic TOP DAILY [facility] Last Admin: 02/11/18 09:20 Dose: 1 applic Enoxaparin Sodium (Lovenox) 40 mg SC DAILY [facility]; Protocol Last Admin: 02/11/18 09:33 Dose: Not Given Ergocalciferol (Drisdol 50,000 Intl Units Cap) 1 cap PO TU [facility] Last Admin: 02/10/18 00:30 Dose: 1 cap Cefazolin Sodium 2 gm/ Sodium (Chloride) 100 mls @ 100 mls/hr IVPB Q8 [facility]; Protocol Last Admin: 02/11/18 09:19 Dose: 100 mls/hr Lactobacillus Acidophilus (Bacid Acidophilus) 1 cap PO BID [facility] Last Admin: 02/11/18 09:26 Dose: 1 cap Levothyroxine Sodium (Synthroid) 75 mcg PO DAILY@0630 [facility] Last Admin: 02/11/18 06:32 Dose: 75 mcg Pantoprazole Sodium (Protonix Ec Tab) 40 mg PO DAILY [facility] Last Admin: 02/11/18 09:20 Dose: 40 mg - Labs Labs: 02/10/18 05:45 02/10/18 05:45 Assessment and Plan (1) Cellulitis Status: Acute
--- NOTE | 2018-02-11 15:05 | PQF ---
PROVIDER RESPONSE TEXT: Lab tests and VS significant. Patient has cellulitis and bacteremia (MSSA positive blood culture) REVIEWER QUERY TEXT: Clinical Significance Are there an associated diagnoses to go along with the following Laboratory results and V/S recorded as follows: --Pulse: 99->88->98->103->95->100->97 02/04: temperature:100.1->99.7-.>98.5->99 02/05 temp mx 100.0 WBC: 14.3 left shift Anaerobic Bottle Positive Only 02/03 Blood culture #2: Prelim: No growth after 48 hrs. -- Clinically insignificant -- Clinically significant, and please also state why it is clinically significant -- Unable to determine clinical significance -- Other, please specify H and P; with hx of down syndrome, hypothyroidism presents with complaints of right lower foot pain, redness, and swelling x3 days. Also complains of sore throat. Cellulites -Pod - Lower Ext Joint MRI ordered - S/P Ancef in ED -C/W Vancomysin and Zosyn -Tetanus va ccine -Cepacol lozenge: sore throat -C/W home meds 02/05 Podiatry progress note; incision was made over the third interspace at the site of the blister f ormation with a #15 blade 1 cc of purulent drainage was expressed 02/06 Podiatry progress note: MRI Right Foot- extensive dorsal soft tissue edema, a definitive absces s not evident, US is advised to r/o abscess Ordered US to r/o abscess Patient tentatively : OR 4:00 PM today The patient's Clinical Indicators include: -- Query created by: Sharonda Enriquez on 02/06/2018 10:32 AM Electronically signed by: Hardy Thompson 02/11/2018 3:03 PM
--- NOTE | 2018-02-11 17:30 | CP.PCM.DIS ---
Provider - Provider Date of Admission: 02/05/18 15:34 Attending physician: Hardy Thompson MD Consults: 02/06/18 06:25 Infectious Disease Consult Routine Comment: Consulting Provider: Alan Dia Consulting Physician: Alan Dia Reason for Consult: Bacteremia Time Spent in preparation of Discharge (in minutes): 35 Diagnosis - Discharge Diagnosis (1) Cellulitis Status: Suspected Hospital Course - Lab Results Lab Results: Micro Results 02/06/18 07:50 Blood-Venous Blood Culture - Final NO GROWTH AFTER 5 DAYS 02/06/18 07:50 Blood-Venous Gram Stain - Final TEST NOT PERFORMED 02/06/18 07:50 Blood-Venous Blood Culture - Final NO GROWTH AFTER 5 DAYS 02/06/18 07:50 Blood-Venous Gram Stain - Final TEST NOT PERFORMED 02/03/18 17:50 Blood-Venous Blood Culture - Final NO GROWTH AFTER 5 DAYS 02/03/18 17:50 Blood-Venous Gram Stain - Final TEST NOT PERFORMED 02/05/18 20:05 Urine,Clean Catch Urine Culture - Final No Growth (<1,000 CFU/ML) 02/03/18 17:45 Blood-Venous S.aureus & Coag-Neg Staph PNA FISH - Final TEST NOT PERFORMED 02/03/18 17:45 Blood-Venous Blood Culture - Final Staphylococcus Aureus 02/03/18 17:45 Blood-Venous Gram Stain - Final Most Recent Lab Values WBC 8.4 K/uL (4.8-10.8) 02/10/18 05:45 RBC 3.98 Mil/uL (4.40-5.90) L 02/10/18 05:45 Hgb 13.2 g/dL (12.0-18.0) 02/10/18 05:45 Hct 39.2 % (35.0-51.0) 02/10/18 05:45 MCV 98.5 fl (80.0-94.0) H D 02/10/18 05:45 MCH 33.1 pg (27.0-31.0) H 02/10/18 05:45 MCHC 33.6 g/dL (33.0-37.0) 02/10/18 05:45 RDW 14.8 % (11.5-14.5) H 02/10/18 05:45 Plt Count 568 K/uL (130-400) H D 02/10/18 05:45 MPV 8.4 fl (7.2-11.7) 02/03/18 16:10 Neut % (Auto) 91.6 % (50.0-75.0) H 02/03/18 16:10 Lymph % (Auto) 3.2 % (20.0-40.0) L 02/03/18 16:10 [place] % (Auto) 4.9 % (0.0-10.0) 02/03/18 16:10 Eos % (Auto) 0.0 % (0.0-4.0) 02/03/18 16:10 Baso % (Auto) 0.3 % (0.0-2.0) 02/03/18 16:10 Neut # (Auto) 13.1 K/uL (1.8-7.0) H 02/03/18 16:10 Lymph # (Auto) 0.5 K/uL (1.0-4.3) L 02/03/18 16:10 [place] # (Auto) 0.7 K/uL (0.0-0.8) 02/03/18 16:10 Eos # (Auto) 0.0 K/uL (0.0-0.7) 02/03/18 16:10 Baso # (Auto) 0.0 K/uL (0.0-0.2) 02/03/18 16:10 Neutrophils % (Manual) 85 % (42-75) H 02/03/18 16:10 Band Neutrophils % 2 % (0-2) 02/03/18 16:10 Lymphocytes % (Manual) 9 % (20-50) L 02/03/18 16:10 Monocytes % (Manual) 4 % (0-10) 02/03/18 16:10 Platelet Estimate Normal (NORMAL) 02/03/18 16:10 Macrocytosis (manual) Slight 02/03/18 16:10 ESR 92 mm/hr (0-15) H 02/05/18 16:52 Sodium 139 mmol/l (132-148) 02/10/18 05:45 Potassium 4.2 MMOL/L (3.6-5.0) 02/10/18 05:45 Chloride 102 mmol/L (98-107) 02/10/18 05:45 Carbon Dioxide 32 mmol/L (22-30) H 02/10/18 05:45 Anion Gap 9 (10-20) L 02/10/18 05:45 BUN 14 mg/dl (9-20) 02/10/18 05:45 Creatinine 1.1 mg/dl (0.8-1.5) 02/10/18 05:45 Est GFR ( Amer) > 60 02/10/18 05:45 Est GFR (Non-Af Amer) > 60 02/10/18 05:45 Random Glucose 103 mg/dL (75-110) 02/10/18 05:45 Calcium 8.4 mg/dL (8.4-10.2) 02/10/18 05:45 Phosphorus 3.6 mg/dl (2.5-4.5) 02/10/18 05:45 Magnesium 2.4 MG/DL (1.6-2.3) H 02/10/18 05:45 Total Bilirubin 0.2 mg/dl (0.2-1.3) 02/10/18 05:45 AST 68 U/L (17-59) H D 02/10/18 05:45 ALT 45 U/L (21-72) 02/10/18 05:45 Alkaline Phosphatase 112 U/L (38-126) 02/10/18 05:45 Troponin I < 0.0120 ng/mL (0.00-0.120) 02/04/18 03:18 C-Reactive Protein 240.90 mg/L (0.0-9.9) H 02/05/18 16:52 Total Protein 7.5 G/DL (6.3-8.2) 02/10/18 05:45 Albumin 3.3 g/dL (3.5-5.0) L 02/10/18 05:45 Globulin 4.2 gm/dL (2.2-3.9) H 02/10/18 05:45 Albumin/Globulin Ratio 0.8 (1.0-2.1) L 02/10/18 05:45 Influenza Typ A,B (EIA) Negative for flu a/b (NEGATIVE) 02/03/18 16:10 - Hospital Course Hospital Course: 42 y/o male with hx of down syndrome, hypothyroidism admitted for Cellulitis of R. foot associated with leukocytosis and elevated sedimentation rate. He was evaluated by Podiatry and had MRI of foot completed that rule out osteomyletitis. He was treated with IV Vanco and Zosyn and cellulitis showed remarkable imrpovement during his stay. His blood cultures were positive for MSSA and he was treated with IV Ancef for 2 weeks and discharged on po keflex as per ID recommendations (Dr. Dia). Pt advised to f/u with Dr. Thompson on Friday at 1pm. Discharge Exam - Head Exam Head Exam: ATRAUMATIC, NORMOCEPHALIC - Eye Exam Eye Exam: Normal appearance - ENT Exam ENT Exam: Mucous Membranes Moist - Respiratory Exam Respiratory Exam: Clear to PA & Lateral - Cardiovascular Exam Cardiovascular Exam: REGULAR RHYTHM - Extremities Exam Additional comments: Right foot- minimal swelling and redness of foot dorsum, small fluctuance. Non tendern, motor and sensory in tact. good distal pulses - Neurological Exam Neurological exam: Alert, Oriented x3 - Psychiatric Exam Psychiatric exam: Normal Affect - Skin Skin Exam: Normal Color Discharge Plan - Discharge Medications Prescriptions: Cephalexin [cephalexin] 500 mg PO TID #21 cap - Follow Up Plan Condition: STABLE Disposition: HOME/ ROUTINE Instructions: Cellulitis (Skin Infection), Adult (DC) Additional Instructions: santyl to right foot wound daily left foot betadine daily. Referrals: Minesh Isidro DPM [Medical Doctor] - Alan Dia MD [Staff Provider] - Gertrude Brown MD [Family Provider] -
== END 2018-02-11 15:50 | disposition home or self-care (01) | DRG 563 ==
LOC: H.ER 14:45 → H.ERHOLD 18:49 → INTOOBSV 18:49 → H.TEL 22:37 → H.MEDSURG1 02-05 01:01 → OBSVTOIN 02-05 15:34
PROVIDERS: ADMIT Internal Medicine; ATTEND Internal Medicine
PROC: 0H9MXZZ Drainage of Right Foot Skin, External Approach (ICD-10-PCS; principal; 2018-02-04)
PROC: 3E0234Z Introduction of Serum, Toxoid and Vaccine into Muscle, Percutaneous Approach (ICD-10-PCS; 2018-02-04)
DX: L03.115 Cellulitis of right lower limb (principal); R78.81 Bacteremia; E03.9 Hypothyroidism, unspecified; Q90.9 Down syndrome, unspecified; E55.9 Vitamin D deficiency, unspecified; K21.9 Gastro-esophageal reflux disease without esophagitis; J02.9 Acute pharyngitis, unspecified; R70.0 Elevated erythrocyte sedimentation rate; Z79.890 Hormone replacement therapy; Z23 Encounter for immunization; Z79.82 Long term (current) use of aspirin; B95.61 Methicillin susceptible Staphylococcus aureus infection as the cause of diseases classified elsewhere